=== PATIENT | female | born 1980 | race Caucasian/White ===

== ENCOUNTER 2023-05-01 10:21 | Outpatient (CLI) | payer OTHER, SELFPAY ==
[2023-05-01 12:42] LABS: Basophils Absolute Auto 0.1 K/mm3 (0.0-0.1); Basophils Percent Auto 1.1 % (0.2-1.2); Eosinophils Absolute Auto 0.2 K/mm3 (0-0.3); Eosinophils Percent Auto 2.8 % (0-4.4); Hematocrit 46.4 % (37.0-47.0); Immature Granulocyte Absolute 0.02 K/mm3 (0.00-0.031); Immature Granulocyte Percent A 0.4 % (0-0.5); Lymphocytes Absolute Auto 1.52 K/mm3 (0.9-3.2); Lymphocytes Percent Auto 28.8 % (18.3-44.2); Mean Corpuscular HGB Conc 32.3 g/dl (32-36); Mean Corpuscular Hemoglobin 30.4 pg (26-34); Mean Corpuscular Volume 93.9 fl (80-100); Mean Platelet Volume 11.3 fl (7.4-10.4); Monocytes Absolute Auto 0.4 K/mm3 (0.1-0.6); Monocytes Percent Auto 6.6 % (2.6-8.5); Neutrophils Absolute Auto 3.2 K/mm3 (1.3-6.7); Neutrophils Percent Auto 60.3 % (45.5-73.1); Platelet Count Result 184 k/mm3 (150-375); Red Blood Count 4.94 M/mm3 (4.2-5.4); Red Cell Distribution Width 13.5 % (11.5-14.5); White Blood Count 5.3 K/mm3 (4.5-10.0)
[2023-05-01 12:55] LABS: Alanine Aminotransferase 26 U/L (6-35); Albumin Level 4.1 g/dL (3.5-5.1); Alkaline Phosphatase 66 U/L (38-126); Anion Gap 0 mmol/L (8-16); Aspartate Amino Transferase 31 U/L (14-36); Bilirubin,Total 0.5 mg/dL (0.2-1.3); Blood Urea Nitrogen 21 mg/dL (7-17); Calcium 9.1 mg/dL (8.4-10.2); Carbon Dioxide 29 mmol/L (22-30); Chloride 109 mmol/L (98-107); Cholesterol 204 mg/dL (0-200); Estimated Glomerular Filt Rate > 60; Glucose 92 mg/dL (65-110); HDL Direct 55 mg/dL; Potassium 4.1 mmol/L (3.4-5.0); Sodium 138 mmol/L (137-145); Triglycerides 83 mg/dL (<150)
[2023-05-01 13:06] LABS: LDL Cholesterol Direct 106 mg/dL
[2023-05-01 13:25] LABS: Vitamin D 25 Hydroxy 59.4 ng/mL
[2023-05-01 14:54] LABS: Erythrocyte Sedimentation Rate 7 mm/hr (0-20)
[2023-05-04 16:20] LABS: ANA Cascade Screen Negative (Negative)
== END 2023-05-01 10:22 | disposition home or self-care (01) ==
LOC: ANHGOSHLAB 10:22
PROVIDERS: PCP Clinical Nurse Specialist; Visit Provider Clinical Nurse Specialist
DX: Z13.228 Encounter for screening for other metabolic disorders (principal); Z13.220 Encounter for screening for lipoid disorders; E55.9 Vitamin D deficiency, unspecified; Z13.0 Encounter for screening for diseases of the blood and blood-forming organs and certain disorders involving the immune mechanism; G47.00 Insomnia, unspecified
CPT/HCPCS: 36415; 80053; 80061; 82306; 84443; 85025; 85652; 86038

== ENCOUNTER 2023-07-03 11:37 | Outpatient (CLI) | payer OTHER, SELFPAY ==
[2023-07-03 19:22] LABS: Rheumatoid Factor < 12.0 IU/ML (<12)
[2023-07-03 19:41] LABS: Erythrocyte Sedimentation Rate 5 mm/hr (0-20)
== END 2023-07-03 11:38 | disposition home or self-care (01) ==
LOC: ANHGOSHLAB 11:39
PROVIDERS: PCP Clinical Nurse Specialist; Visit Provider Clinical Nurse Specialist
DX: M25.40 Effusion, unspecified joint (principal)
CPT/HCPCS: 36415; 85652; 86430

== ENCOUNTER 2023-07-24 09:20 | Emergency (ER) | payer OTHER, SELFPAY ==
[2023-07-24 09:35] VITALS: BP 115/75; PULSE 67; RESP 16; TEMP 36.3; O2SAT 100
[2023-07-24 09:58] VITALS: BP 115/75; PULSE 67; RESP 16; TEMP 36.3; O2SAT 100
--- NOTE | 2023-07-24 10:31 | ED.EAR ---
HPI - Ear Problem General Chief complaint: Ear Stated complaint: Ear infection Time Seen by Provider: 07/24/23 10:31 Source: patient, RN notes reviewed and old records reviewed Mode of arrival: ambulatory Limitations: no limitations History of Present Illness HPI Narrative: 43 year old female present to [facility] with complaints of ear pain to her right ear for 2 day duration. Patient also reports that she has had dry irritating cough for 2 weeks, denies any history of asthma. Patient reports history of ear infections with numerous tubes to her ears.Patient denies any fevers, chills, or sweats or any body aches. MD Complaint: ear pain Location: right ear Duration: constant Severity: mild Discharge from ear: Reports no Treatment prior to arrival: oral analgesic (Ibuprofen) Related Data Allergies Allergy/AdvReac Type Severity Reaction Status Date / Time No Known Allergies Allergy Unverified 07/24/23 09:49 Review of Systems Review of Systems: CONSTITUTIONAL: Denies malaise, chills, sweats, or fever. EYES: Denies visual changes, redness, or discharge. ENT: Reports no rhinorrhea, congestion, sinus pain,positive right otalgia and no sore throat. CARDIOVASCULAR: Denies chest pain, palpitations, or edema. RESPIRATORY: Reports cough dry irritating.? Denies dyspnea. GASTROINTESTINAL: Denies abdominal pain, nausea, vomiting, diarrhea SKIN: Denies rash or itching. MUSCULOSKELETAL: Denies myalgia. NEUROLOGIC: Denies headache. All systems reviewed & are unremarkable except as noted in HPI and below PMFSH Past Medical History Medical History (Updated 07/26/23 @ 12:11 by Shelly Alcaraz NP) Ear infection Surgical History Surgical History (Updated 07/26/23 @ 12:07 by Shelly Alcaraz NP) History of placement of ear tubes x5 last at 16 year old Social History Social History (Updated 04/14/23 @ 09:01 by Anna Blackwell MA) Smoking status: Never smoker Alcohol intake: current Substance use: never Lack of Transportation: No Lack of Food: Never True Current Housing: I Have Housing Concerned About Future Housing: No Difficulty Paying Gas/Electric Bills: No Currently Unemployed: No Education: Bachelor's Degree Difficulty w/ Childcare or Family Care: No Living arrangements: with family Comments At time of signature, agree with nursing past medical, surgical, social and family history. There is no relevant family history pertinent to the presenting complaint Exam Narrative: GENERAL: Well-appearing, well-nourished, and in no acute distress. HEAD: Normocephalic EYES: PERRLA, conjunctivae clear ENT: Nares clear, turbinates edematous and erythematous, clear discharge. Mucous membranes moist.right TM red and bulging,Left TM pearly collins with dull light reflex bilaterally; no tragal tenderness. Oropharynx erythematous without lesions. Tonsils not enlarged and without exudate, no drooling, no hoarseness, no trismus, uvula midline. NECK: Supple. No lymphadenopathy CHEST: Clear to auscultation, breath sounds equal. No wheezing, rhonchi, rales, or stridor. No respiratory distress, speaks in full sentences.dry cough, SAO2 100% on room air HEART: Regular rate and rhythm. No murmur heard. SKIN: Warm, dry, no rash. NEURO: Alert and oriented x3. PSYCH: Normal mood and affect Course Course Emergency Course: Patient is aware of diagnosis, understands and agrees to treatment plan.? Anticipatory guidance given.? Patient agrees to follow-up as directed and is aware of reasons to seek care at the emergency department. Portions of this record may have been created with voice recognition software Level of Care: Express Care Visit Vital Signs Vital signs: Vital Signs Temperature 36.3 C L 07/24/23 09:35 Pulse Rate 67 07/24/23 09:35 Respiratory Rate 16 07/24/23 09:35 Blood Pressure 115/75 07/24/23 09:35 Pulse Oximetry 100 07/24/23 09:35 Oxygen Delivery
== END 2023-07-24 10:45 | disposition home or self-care (01) ==
PROVIDERS: Emergency Provider Registered Nurse; PCP Clinical Nurse Specialist
DX: R05.9 Cough, unspecified (principal); H66.91 Otitis media, unspecified, right ear
CPT/HCPCS: 99213; G0463

== ENCOUNTER → 2023-08-04 16:04 | Outpatient (CLI) | payer OTHER, SELFPAY ==
--- NOTE | ~2023-08-04 | MR_ITS ---
EXAMINATION: MR shoulder RT wo con DATE: 08/04/2023 16:32 INDICATION: Chronic right shoulder pain. TECHNIQUE: Magnetic resonance imaging (MRI) of the right shoulder was performed without intravenous c ontrast. Sequences included axial PD-weighted FS FSE, coronal oblique PD-weighted FS FSE and T2-weigh talha FS FSE, and sagittal oblique T2-weighted FS FSE and T1-weighted FSE. COMPARISON: None. FINDINGS: Coracoacromial arch: The acromion undersurface is curved in morphology (type II). There is mild acromial clavicular joint osteoarthritis. There is mild subacromial/subdeltoid bursitis. Rotator cuff: There is mild supraspinatus and infraspinatus tendinopathy. Teres minor tendon is normal. Subscapular is tendon is normal. No tear. There is no asymmetric fatty atrophy of the rotator cuff muscle bellies . Biceps tendon and glenoid labrum: The biceps tendon is in the bicipital groove. Intra-articular biceps tendon is normal. The glenoid la jenna is normal. Fluid: There is no glenohumeral joint effusion. Bones/cartilage: Glenoid cartilage is normal. Humeral head cartilage is normal. IMPRESSION: 1. Mild rotator cuff tendinopathy. No tear. 2. Mild acromioclavicular joint osteoarthritis. 3. Mild subacromial/subdeltoid bursitis. Reviewed, dictated and finalized at location A.
== END ==
PROVIDERS: PCP Clinical Nurse Specialist; Visit Provider Orthopaedic Surgery
DX: M75.51 Bursitis of right shoulder (principal); M19.011 Primary osteoarthritis, right shoulder
CPT/HCPCS: 73221

== ENCOUNTER 2024-05-30 14:58 | Outpatient (CLI) | payer OTHER, SELFPAY ==
--- NOTE | ~2024-05-30 | MM_ITS ---
EXAMINATION: MM scrn juan ramon implant BI w isrrael HISTORY: Screening mammogram TECHNIQUE: Craniocaudal and mediolateral oblique 3-D tomosynthesis images with implant displacement a nd synthetic 2-D images were generated. Craniocaudal and mediolateral oblique views of the breasts wi thout implant displacement were obtained using full field digital mammography. CAD analysis was submi tted and interpreted. COMPARISON: No prior mammogram is available for comparison at this institution. BREAST PARENCHYMAL COMPOSITION: Not dense: There are scattered areas of fibroglandular density. FINDINGS: There is no evidence of suspicious mass, calcification, or architectural distortion to sugg est malignancy in either breast. There has been no suspicious interval change. IMPRESSION: 1. No mammographic evidence of malignancy. 2. Recommend routine screening mammography in one year. BI-RADS Category 1: Negative Reviewed, dictated and finalized at location B.
== END 2024-05-30 14:59 ==
LOC: MICIMG 14:58
PROVIDERS: PCP Obstetrics & Gynecology Gynecology; Visit Provider Clinical Nurse Specialist
DX: Z12.31 Encounter for screening mammogram for malignant neoplasm of breast (principal)
CPT/HCPCS: 77063; 77067

== ENCOUNTER 2025-06-03 11:38 | Outpatient (CLI) | payer OTHER, SELFPAY ==
--- OUTSIDE RECORDS SUMMARY | 2025-06-03 12:23 | XMS_ITS | Clinical Summary ---
Author Organization [facility] Address [address] [place] [address] Care Team Providers Care Pool Hall Inspector Name Role Phone Sherie Ferguson NP Primary Care Provider [phone] Ricky Hernandez MD Unavailable [phone] Allergies Active Allergy Reactions Criticality Noted Date Comments Adhesive Tape-Silicones Itching,Rash Medium 07/08/2019 Chlorhexidine Rash Medium 11/02/2023 Skin-rash Medications cetirizine (ZyrTEC) 10 mg chewable tablet Take 1 tablet (10 mg total) by mouth daily as needed for allergies Active doxylamine succinate (UNISOM, DOXYLAMINE, ORAL) Take 12.5 mg by mouth 2 Active valACYclovir (VALTREX) 500 mg tablet Take 1 tablet (500 mg total) by mouth nightly 2 Active LYSINE ORAL Take 1 capsule by mouth nightly Active ibuprofen (ADVIL,MOTRIN) 600 mg tablet Take 1 tablet (600 mg total) by mouth 4 (four) times a day as needed 3 Active multivitamin powder in packet Take 1 tablet by mouth nightly Active Lactobacillus acidophilus (PROBIOTIC ORAL) Take 1 capsule by mouth nightly Active traMADoL (ULTRAM) 50 mg tablet Take 1 tablet (50 mg total) by mouth every 6 (six) hours as needed for pain 28 tablet 3 Active meloxicam (MOBIC) 15 mg tablet TAKE 1 TABLET(15 MG) BY MOUTH DAILY 30 tablet 3 4 Active gabapentin (NEURONTIN) 300 mg capsuleIndicatio ns:Chronic right shoulder pain TAKE 1 CAPSULE BY MOUTH EVERY NIGHT AT BEDTIME FOR 4 NIGHTS THEN 1 CAPSULE TWICE DAILY 60 capsule 5 Active cephalexin (KEFTAB) 500 mg tablet 4 Active Active Problems Problem Noted Date Diagnosed Date S/P arthroscopy of right shoulder 11/30/2023 Shoulder pain 11/30/2023 H/O: hysterectomy 10/02/2023 Rotator cuff impingement syndrome of right shoul juanjose 09/08/2023 Bursitis of right shoulder 09/08/2023 Ankle pain 02/25/2016 Surgical History Surgery Date Site/Laterality Comments SECTION 2000 2002 HYSTERECTOMY COSMETIC SURGERY Social History Tobacco Use Types Packs/Day Years Used Date Smoking Tobacco: Never Tobacco Cessation:Counseling Given: Not Answered AUDIT-C Answer Date Recorded Q1: How often do you have a drink containing alc ohol? Monthly or less 10/17/2023 Average Number of Drinks Not on file 023 Q3: How often do you have si x or more drinks on one occasion? Never 10/17/2023 Personal Safety Answer Date Recorded Have you ever been in or are you currently in a harmful physical or emotional relationship or is someone making you feel afraid or unsafe? Denies 10/17/2023 Comments No Sex and Gender Information Value Date Recorded Sex Assigned at Not on file Legal Sex Female 10:40 AM PREPLEATER Gender Identity Not on file Sexual Orientation Not on file Obstetrics History Last Filed Vital Signs Vital Sign Reading Time Taken Comments Blood Pressure 115/66 10/17/2023 10:45 AM PREPLEATER Pulse 70 10/17/2023 10:45 AM PREPLEATER Temperature 36.4 C (97.5 F) 10/17/2023 10:15 AM PREPLEATER Respiratory Rate 16 10/17/2023 10:45 AM PREPLEATER Oxygen Saturation 98% 10/17/2023 10:45 AM PREPLEATER Inhaled Oxygen Concentration - - Weight 77.1 kg (170 lb) 11/30/2023 1:22 PM PREPLEATER Height 160 cm (5' 3) 11/30/2023 1:22 PM PREPLEATER Body Mass Index 30.11 11/30/2023 1:22 PM PREPLEATER Plan of Treatment Health Maintenance Due Date Last Done Comments Breast Cancer Screening-Mammogram 1978 Colon Cancer Screening-Colonoscopy 1978 Depression Screening 1978 Hepatitis C Screening 1978 Regular Well Visit/Exam 18-64 1996 Influenza Vaccine (#1) 2025 3, 08/25/2022, 08/29/2016, Additional history exists DTaP/Tdap/Td Vaccine (3 - Td or Tdap) 01/10/2026 01/11/2016, 03/09/2010 Hepatitis B Screening Completed 08/31/2010 , 08/31/2010, 05/11/2010, Additional history exists Pneumococcal vaccine <65 Aged Out No longer eligible based on patient's age to complete this topic Medical Devices Implanted Type Area Quality Assurance Auditor Device Identifier Shelf Expiration Date Model / Serial / Lot Breast Breast Bilateral: Breast Insurance [facility] Care Teams Pool Hall Inspector Relationship Specialty Start Date End Date Sherie Ferguson NP [facility] [address] [place] [address] PCP - General Cardiovascular Disease 10/17/23 Ricky Hernandez MD [address] [place] [address] Consulting Physician Orthopedic Surgery 10/17/23
--- OUTSIDE RECORDS SUMMARY | 2025-06-03 12:23 | XMS_ITS | Continuity of Care Document ---
Author Name [facility] Organization [facility] Care Team Providers Care Commercial Fisherman Name Role Phone [facility] Unavailable Unavailable Problems Combined list of problems from Department of Defense and Veterans Affairs facilities. It does not include entries that were removed or entered in error. Problem Status Onset Date Problem Type Date of Resolution Comments Source Abnormal electrocardiogram [ECG] [EKG] Active Condition [facility] Pain in left wrist Active Condition [facility] Pain in right shoulder Active Condition [facility] H/O: hysterectomy Active Condition [address] [place] [address] Pain in right shoulder Active Condition [address] [place] [address] Medications Combined list of outpatient medications from Department of [facility] and Veterans [facility] facilities.Medications provided include 1) outpatient medications from the last 15 months, and 2) patient-reported medications. Medication Details Route Status Patient Instructions Prescription Expires Prescription Number Last Dispense Date Ordering Provider Order Date Order Qty Source cephalexin 500 mg oral capsule 0 total refill(s ) Discont inued 01/13/20222021 No Facilit y Access NexIUM Oral, Daily, 0 total refill(s ), Maintena nce Oral (given by mouth) Ordered [address] [place] [address] polymyxin B-trimethop rim 10,000 units-1 mg/mL ophthalmic solution polymyxi n B-trimet hoprim 10,000 units-1 mg/mL ophthalm ic solution Start Date: 01/19/20 Stop Date: 01/13/22 Status: Disconti hernando Repeat number: 1 Discont inued 01/13/20222021 No Facilit y Access sulfamethox azole-trime thoprim 800 mg-160 mg oral tablet 0 total refill(s ) Discont inued 01/13/20222021 No Facilit y Access Unisom mg, Oral, Daily, 0 total refill(s ), Maintena nce Oral (given by mouth) Ordered [address] [place] [address] valACYclovi r 500 mg oral tablet 1 tab(s), Oral, Daily, # 90 tab(s), 1 total refill(s ), Hard Stop, 03/23/22 10:28:45 PM CDT, Pharmacy : [facility] #[id number] Oral (given by mouth) Complet ed 03/24/2022[address] [place] [address] valACYclovi r 500 mg oral tablet 1 tab(s), Oral, Daily, # 90 tab(s), 3 total refill(s ), Maintena nce, Pharmacy : [facility] #[id number] Oral (given by mouth) Ordered [address] [place] [address] valACYclovi r 500 mg oral tablet 1 tab(s), Oral, Daily, # 90 tab(s), 1 total refill(s ), Hard Stop, 09/10/21 1:25:06 PM LOOP TACKER, Pharmacy : [facility][id number] Oral (given by mouth) Complet ed 09/10/20212020 90.[address] [place] [address] valACYclovi r 500 mg oral tablet 2 total refill(s ) Discont inued 01/13/20222021 No Facilit y Access ZyrTEC Daily, 0 total refill(s ), Maintena nce Ordered [address] [place] [address] Allergies, Adverse Reactions, Alerts Combined list of allergies from Department of Defense and Veterans Affairs facilities. It does not include entries that were removed or entered in error. Substance Category Reaction Severity Reaction type Status Date Reported Comments Source No Known Allergies Drug allergy (disorder) active 07/10/2018 [place] Immunizations Combined list of available immunizations from the Department of Defense and Veterans Affairs facilities. Immunization Series Date Given Administered By Site Reaction Lot Number CVX Code Drug Zoology Technical Officer Status Comments Source influenza, injectable, quadrivalent, preservative free 2020 DOLORES, () Not Given influenza , injectabl e, quadrival ent, preservat kajal free [facility] Vital Signs Combined list of inpatient and outpatient Vital Signs from Department of Defense and Veterans Affairs, ranging from 12 months to all on record, depending upon the facility. Vital Sign Value Date Comments Source Mean Arterial Pressure, Cuff (Calc) 95 mm[Hg] 01/13/2022 21:25:[address] [place] [address] Peripheral Pulse Rate 81 bpm 01/13/2022 21:25:[address] [place] [address] Temperature Temporal Artery 37 Amie 01/13/2022 21:25:[address] [place] [address] Respiratory Rate 18 br/min 01/13/2022 21:25:[address] [place] [address] Systolic Blood Pressure 123 mm[Hg] 01/14/20 21:25:[address] [place] [address] Diastolic Blood Pressure 81 mm[Hg] 022 21:25:[address] [place] [address] Mean Arterial Pressure, Cuff (Calc) 86 mm[Hg] 01/18/2022 19:42:[address] [place] [address] Temporal Artery 36.8 Amie 01/18/2022 19:42:[address] [place] [address] Systolic Blood Pressure 113 mm[Hg] 01/19/20 19:42:[address] [place] [address] Diastolic Blood Pressure 72 mm[Hg] 022 19:42:[address] [place] [address] Respiratory Rate 18 br/min 01/18/2022 19:42:[address] [place] [address] Peripheral Pulse Rate 86 bpm 01/18/2022 19:42:[address] [place] [address] Systolic Blood Pressure 112 mm[Hg] 05/06/20 20:23:[address] [place] [address] Diastolic Blood Pressure 77 mm[Hg] 022 20:23:[address] [place] [address] Temporal Artery 36.8 Amie 05/06/2022 20:23:[address] [place] [address] Mean Arterial Pressure, Cuff (Calc) 89 mm[Hg] 05/06/2022 20:23:[address] [place] [address] Blood Pressure Manual Automatic 05/06/2022 20:23:[address] [place] [address] BP Site Right arm 05/06/2022 20:23:[address] [place] [address] Respiratory Rate 16 br/min 05/06/2022 20:23:[address] [place] [address] Peripheral Pulse Rate 80 bpm 05/06/2022 20:23:[address] [place] [address] Encounters Combined list of: 1) Encounters from Department of Veterans Affairs facilities going backup to the last 18 months, not all VA inpatient encounters are included; 2) Encounters from the Department of [facility] facilities going backup to 280 months. Location Location Details Encounter Type Encounter Number Reason For Visit Attending Provider ADM Date DC Date Status Disposition Source LAURA Koehler([facility]) OUTPATIENT [id number] Well visit yearly JESÚS RAMIREZ 04/19 Released w/o Limitations [place] Choi [place]([facility]) LAURA Koehler([facility]) TELE CONSULT [id number] Notes Entered by: DE CROWLEY 24 Jul 2017 0906 ------- ------- ------- ------- -- ritesh/ refill on valacyc paulineir/ # checked msg MALIHA Stallworth 07/24 Released to Self Care Carlos Choi [place]([facility]) LAURA Koehler([facility] A) OUTPATIENT [id number] sinus infecti on KAYLEE ALEGRIA 08/04 Released w/o Limitations Carlos Choi [place]([facility]) [place]oi [place]([facility]) OUTPATIENT [id number] severe abdomin al/stom ache pain KAYLEE ALEGRIA 11/23 Released w/o Limitations Carlos Choi [place]([facility]) [place] Choi [place]([facility]) TELE CONSULT [id number] Notes Entered by: Luis Miguel WINTER 24 Nov 2017 0918 ------- ------- ------- ------- -- NETWORK RESULT- ORDER CT SCAN- 018 KAYLEE ALEGRIA 11/24 [place]oi [place]([facility]) [facility]) TELE CONSULT [id number] Notes Entered by: PK CARRASCO 27 Nov 2017 0901 ------- ------- ------- ------- -- Request ing MRI referra [id number] MALIHA BELLA 11/27 Referred for Appointment Carlos Choi [place]([facility]) [place] [facility]) TELE CONSULT [id number] Notes Entered by: ANGELIKA RODRIGUEZ 27 Nov 2017 1318 ------- ------- ------- ------- -- NETWORK RESULT- CT ABDOMEN /PELVIS W- 8-m MALIHA BELLA 11/27 Referred for Appointment Carlos Choi [place]([facility]) [facility]) TELE CONSULT [id number] Notes Entered by: DE CROWLEY 20 Dec 2017 0958 ------- ------- ------- ------- -- saw ritesh/ MRI results , done on monday, health images JONATHAN BETTY C 12/20 Other Not Elsewhere Classified Carlos Choi [place]([facility]) [place] [facility] Team A) TELE CONSULT [id number] Notes Entered by: ISMAEL CHOPRA 10 Jan 2018 1448 ------- ------- ------- ------- -- Network Results -MRI Abdomen - KAYLEE ALEGRIA 01/10 [place]oi [place]([facility] Team A) [place] [facility] Team A) TELE CONSULT [id number] Notes Entered by: MACRELINO BLAND 29 Jan 2018 1450 ------- ------- ------- ------- -- Network Result- Urology 018 KAYLEE ALEGRIA 01/29 [place]([facility]) [place]([facility]_Te[facility] m A) TELE CONSULT [id number] Notes Entered by: SAMEER LTOT 28 Mar 2018 1042 ------- ------- ------- ------- -- / prescri ption refill ROSAMARIA MONTGOMERY 03/28 Medication Refill Forwarded Gonzalez DONOVAN [place]([facility] [facility] _Team A) Gonzalez DONOVAN [place] Ch[place]([facility] y_[facility]_Tea m A) OUTPATIENT [id number] right wrist issues looking for referal orortho pedics KAYLEE ALEGRIA 07/09 Released w/o Limitations Gonzalez DONOVAN [place]oi [place]([facility] _Team [facility]) Gonzalez DONOVAN [place] [facility]([facility]) TELE CONSULT [id number] Notes Entered by: BRENDON BUSTOS 16 Jul 2018 1044 ------- ------- ------- ------- -- IUD Inserti on BETTY CASTILLO Emmanuel 07/16 Other Not Elsewhere Classified [facility]) [facility]) TELE CONSULT [id number] Notes Entered by: BRAD ALARCON 31 Jul 2018 0903 ------- ------- ------- ------- -- BCBA/ PT would like IUD implant on Jul AYANNA GARCIA 07/31 Other Not Elsewhere Classified [place]( [facility]) [place] con[place]_[facility]_Te[facility] m A) TELE CONSULT [id number] Notes Entered by: SAMEER LOTT 13 Aug 2018 0906 ------- ------- ------- ------- -- Ritesh/ prescri ption IKE Bledsoe 08/13 [place]) [place]( [facility]) OUTPATIENT [id number] IUD inserti on FRANCISCA TEE 08/15 Released w/o Limitations [place]( [facility]) [place]( [facility] OUTPATIENT [id number] 2 well womans exam and 6 wk f/u for IUD placeme nt FRANCISCA TEE 09/28 Released w/o Limitations [place]( [facility]) [place]( [facility] TELE CONSULT [id number] Notes Entered by: Luis Miguel TEE 10 Oct 2018 1320 ------- ------- ------- ------- -- FRANCISCA Choi 10/10 Carlos [place]( [facility]) [place]( [facility]) TELE CONSULT [id number] Notes Entered by: Luis Miguel TEE 26 Oct 2018 1341 ------- ------- ------- ------- -- Tapan mammogr am FRANCISCA TEE 10/26 Carlos [place]( [facility]) [place] [facility] [facility] Team A) OUTPATIENT [id number] pt wants to get blood drawn DORIE QUINTEROS 11/21 Released with Work/Duty Limitations [place]) [place] Team A) TELE CONSULT [id number] Notes Entered by: INDIO QUINTEROS 17 Dec 2018 1612 ------- ------- ------- ------- -- Cholest YAHAIRA Juarez 12/17 Gonzalez [place]) [place]) OUTPATIENT [id number] 3 discuss IUD issues FRANCISCA TEE 05/02 Released w/o Limitations Gonzalez DONOVAN [place]( [facility]) [place]) TELE CONSULT [id number] Notes Entered by: Luis Miguel TEE 03 May 2019 0742 ------- ------- ------- ------- -- FRANCISCA Choi 05/03 Gonzalez DON[place]AN [place]( [facility]) [place]) OUTPATIENT [id number] 7 YOJANA HUNG DD 05/16 Released w/o Limitations Gonzalez DONOVAN [place]) [place] y [facility] Team A) TELE CONSULT [id number] Notes Entered by: DYLAN ANN 10 Jun 2019 1255 ------- ------- ------- ------- -- Juan/FRANCISCA Bolivar 06/10 Gonzalez DONOVAN [place]) Gonzalez DON[place]( [facility]) TELE CONSULT [id number] Notes Entered by: DANE RAM 19 Jun 2019 0834 ------- ------- ------- ------- -- FRANCISCA Shin 06/19 [place]([facility]) [place]([facility] Team A) TELE CONSULT [id number] Notes Entered by: DANE RAM 19 Jun 2019 1303 ------- ------- ------- ------- -- Tone kc/NGOZI Fang 06/19 Referred for Appointment [place] [facility] Team A) [place] [facility] Team A) TELE CONSULT [id number] Notes Entered by: DONNIE SORIANO 20 Jun 2019 0910 ------- ------- ------- ------- -- Network results - 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 APPRENTICE WOOD- 9 DORIE QUINTEROS 06/20 [place] [facility] [facility] Team [facility]) [place] A) OUTPATIENT [id number] virtual [phone] to discuss referra l for hernia surgery - ALDAIR LIRIANO JAMES T 06/20 Released w/o Limitations [place] [facility] [facility] Team [facility]) [place] Team [facility]) TELE CONSULT [id number] Notes Entered by: MAYITO CRESPO SA 29 Jul 2019 1543 ------- ------- ------- ------- -- Network Results - DERMATO LOGY - 8 YOJANA TABOR 07/29 [place] [facility] Team [facility]) [place] Team A) TELE CONSULT [id number] Notes Entered by: DONNIE SORIANO 26 Sep 2019 1447 ------- ------- ------- ------- -- Network results - Prescri ption- 9 YOJANA TABOR 09/26 [place] [facility] [facility] Team [facility]) [place] Team A) TELE CONSULT [id number] Notes Entered by: TRACEE GONZALEZ 30 Sep 2019 1355 ------- ------- ------- ------- -- Tone kc/RX KENNETH GODOY 09/30 Other Not Elsewhere Classified [place] [facility] [facility] Team [facility]) [place] Team [facility]) TELE CONSULT [id number] Notes Entered by: Gisela CHRISTIANSON NNE 06 Nov 2019 1549 ------- ------- ------- ------- -- Network results -Physic al therapy -2018 YOJANA TABOR 11/06 Gonzalez DONOVAN [place]([facility]) [place]([facility] Team A) TELE CONSULT [id number] Notes Entered by: MAURISIO CHAVARRIA 23 Dec 2019 1037 ------- ------- ------- ------- -- Network Results - General Surgery - 019 YOJANA TABOR 12/22 Carlos [place] Team [facility]) [place] Team A) TELE CONSULT [id number] Notes Entered by: ANAYELI JOHNS 27 Dec 2019 1010 ------- ------- ------- ------- -- Network Result - Dischar ge Summary 019 YOJANA TABOR 12/26 Carlos [place]) [place] Team A) OUTPATIENT [id number] eye pain GABRIEL ALVES V 01/16 Released w/o Limitations [place]) [place] Team A) TELE CONSULT [id number] Notes Entered by: JOEL ARROYO 20 Jan 2020 1108 ------- ------- ------- ------- -- TONE [place]/REFE STEVIE HOPPER 01/19 Other Not Elsewhere Classified [place]) [place] Team A) TELE CONSULT [id number] Notes Entered by: Gisela MARTI 23 Jan 2020 1226 ------- ------- ------- ------- -- TONE [place] PT ER F/U STEVIE VEE 01/22 Other Not Elsewhere Classified [place]) [place] Team [facility]) TELE CONSULT [id number] Notes Entered by: MARAH CHAVARRIA 10 Jun 2020 1042 ------- ------- ------- ------- -- Casselnatasha an / MED / Medicat ion Renewal GABRIEL ALVES V 06/10 [place]) [place]) OUTPATIENT [id number] [id number] med concern GABRIEL ALVES V 06/16 Released w/o Limitations [place]([facility]) [place] Team [facility]) TELE CONSULT [id number] Notes Entered by: Gisela CHRISTIANSON 16 Jun 2020 1405 ------- ------- ------- ------- -- Network Results -Rx Refill- 020 KYMBERLYKEONYOJANA 06/16 LAURA Koehler([facility]) LAURA Koehler([facility]) TELE CONSULT [id number] Notes Entered by: Loretta ROBERTSON 31 Aug 2020 1045 ------- ------- ------- ------- -- NA / APPT / FTR / F2F for PAP/Wel l Woman and Painful bump on Labia HARNESS, ROSETTE S 08/31 Referred for Appointment LAURA Koehler([facility]) LAURA Koehler([facility]) OUTPATIENT [id number] PAP/WWE Check Lump FRANCISCA TEE 09/07 Released w/o Limitations Gonzalez [facility] LAURA Farr([facility]) [facility] LAURA Farr([facility]) TELE CONSULT [id number] Notes Entered by: Luis Miguel TEE 11 Nov 2020 1342 ------- ------- ------- ------- -- Tapan/ juan josé zhao for mammogr am FRANCISCA Calderon 11/11 LAURA Koehler([facility]) [facility] OUTPATIENT [id number] 320/ eye concern s GABRIEL ALVES V 11/19 Released w/o Limitations Carlos Choi [place]([facility]) SYBIL Dillard([address]) TELE CONSULT [id number] Notes Entered by: Brianna AGUERO 06 Jun 2022 1339 ------- ------- ------- ------- -- SUMMER G-JASBIRE R REGABRIEL QIUROS 06/06 SYBIL Dillard([address]) [place] DONOVAN [employer], [place]([address]) TELE CONSULT [id number] Notes Entered by: YOJANA MARIE 07 Jun 2022 1111 ------- ------- ------- ------- -- Need referYOJANA Navarrete 06/07 [place] DONOVAN [employer], [place]([address]) [facility] [place], SY[place]([address]) OUTPATIENT [id number] [phone]: [facility] Ref: ortho R shoulde r. Change [facility] BEL ALEXIS 06/10 Released w/o Limitations [place] DONOVAN [employer], [place]([address]) [facility] [place], [place]([address]) TELE CONSULT [id number] Notes Entered by: AUSTIN MONCADA 25 Jul 2022 0820 ------- ------- ------- ------- -- NETWORK RESULTS -ORTHOP EDICS-D OS: 07/22/20 22, LOOK IN ARTIFAC TS and IMAGES. BEL ALEXIS 07/25 [place] DON[place]AN [employer], [place]([address]) [facility] [place], [place](Family Medicine) OUTPATIENT [id number] HC REFERRA L PER MS BEL MUELLER 07/25 Released w/o Limitations [place], [place](Fami ly Medicin e) [facility] [place], [place](Family Medicine) OUTPATIENT [id number] HC REFERRA L CARDIOL IGNACIO HINSON 10/12 Released w/o Limitations [place](F[place] Medic[place]) [facility] [place], [place](Family Medicine) TELE CONSULT [id number] Notes Entered by: Brianna AGUERO 20 Oct 2022 0857 ------- ------- ------- ------- -- NEEDING MOST RECENT EKG RESULTS GABRIEL AGUERO 10/20 [facility] [place], [place](Fami ly Medicin e) Procedures Combined list of: 1) Procedures from Department of Veterans Affairs facilities going back up to thelast 18 months, not all VA non-surgical procedures are included; 2) All procedures from the Department of Defense facilities. Procedure Procedure Type Code Date Perfomer Comments Sourc e Internet Med Svc Qual Nonphys Healthcare Prof Estab Patient Internet Med Svc Qual Nonphys Healthcare Prof Estab Patient [id number] DORIE QUINTEROS DoD Orthopedic Strapping Wrist Orthopedic Strapping Wrist [id number] 8 KAYELE ALEGRIA [facility] Psychiatric Therapy Environmental Intervention Psychiatric Therapy Environmental Intervention [id number] 7 AKASH SEGOVIA [facility] Cervical Pap Smear Cervical Pap Smear [id number] 7 JESÚS RAMIREZ DoD Brief communication technology-based service, e.g. virtual check-in, by a physician or other qualified health care profe james who can report evaluation and management services, provided to an established patient, not originating from a related E/M service provided within the previous 7 days nor leading to an E/M service or procedure within the next 24 hours or soonest available appointment; 5-10 minutes of medical discu ion GABRIEL GRADY V DoD Waiver services; not otherwise specified (NOS) GABRIEL GRADY V DoD WAIVER SERVICES; NOT OTHERWISE SPECIFIED (NOS) 2 DoD WAIVER SERVICES; NOT OTHERWISE SPECIFIED (NOS) 2 DoD WAIVER SERVICES; NOT OTHERWISE SPECIFIED (NOS) 2 DoD WAIVER SERVICES; NOT OTHERWISE SPECIFIED (NOS) 1 DoD WAIVER SERVICES; NOT OTHERWISE SPECIFIED (NOS) 0 DoD BRIEF COMM TECH-BASE SERV,E.G. VIRT CHK-IN,BY PHYS/OTH QUAL HCP,RPT E&M SERV,PROV TO EST PT,NOT ORIG FRM REL E/M SERV PROV W/IN PREV 7DAY NOR LEAD TO E/M SRV/PX W/IN NEXT 24HR/SOON ANGELINE; 5-10 MIN DISC 0 [facility] ONLINE ASSESS &MANAG SERV PROVIDE,A QUAL NONPHYS HCP TO AN ESTABLISHED PAT/GUARDIAN,NOT ORIGINAT FRM RELAT ASSESS &MANAG SERV PROVIDE W/IN THE PREV 7 DAYS,USE THE INTERNET/SIMILAR [place] COMM NETWORK 9 DoD INSERTION OF INTRAUTERINE DEVICE (IUD) 8 [facility] STRAPPING; ELBOW OR WRIST 8 [facility] ENVIRONMENTAL INTERVENTION FOR MEDICAL MGMT PURPOSES ON A PSYCHIATRIC PATIENT'S BEHALF WITH AGENCIES, EMPLOYERS, OR INSTITUTIONS 7 [facility] CYTOPATHOLOGY, SMEARS, CERVICAL OR VAGINAL, UP TO THREE SMEARS; SCREENING BY MANAGING PARTNER UNDER PHYSICIAN SUPERVISION 7 [facility] Hysterectomy [address] [place] [address] ear tubes [address] [place] [address] c section x [address] [place] [address] Social History Combined list of available smoking, tobacco, and other social history from Department of Defense and Veterans Affairs facilities. Social History Type Response Date Comment Sour e Sex Representation Female (finding) 12/15/2020 Unknown Organization This section is an empty social history section. [facility] Tobacco Former-cigarette user Cigarette use:. Never-other tobacco user (not cigarettes) Other Tobacco use:. Ambulatory Pharmacy Sexual Orientation Ambula tory Pharmacy Gender identity Ambulator y Pharmacy Assessment and Plan Combined list of future care activities from Department of Defense and Veterans Affairs facilities (e.g., assessment and plan notes, appointments, orders, and referrals). Additional future care activities may be listed in the Plan of Care section. Result Assessment and Plan Date Source Assessment and Plan Extracted from:Title : Office Clinic Note - right shoulder pain Author: GABRIEL FISHER Date: 05/06/22 1. P ain in right shoulder 42yo F with chronic right shoulder pain, has failed to improve with PT, she has constant pain to anterior shoulder, she maintains full ROM. plan for MRI and with further plan of care pending result. she declines nsaid or analgesic rx today. Extracted from:Title: Office Clinic Note - BFA Initial Appt Author: NICOLASA KELLY MD Date: 01/18/22 1. P ain in right shoulder BFA as per procedure note. Tolerated well with some improvement in her pain. Return precautions discussed. May repeat in 2 weeks. Send message to team to schedule appt. Med List: T he patient declined a copy of the medication list Prev Med: Defer labs at this time. Rest is up to date. Extracted from:Title: Office Clinic Note - R pectoralis strain Author: NICOLASA KELLY MD Date: 01/13/22 1. S train of chest wall muscle S train of R pectoralis, doubt rotator cuff injury, subacromial bursitis, etc. - Handout with exercises provided to patient at time of appt. Instructed to perform 2-3x/day until pain improves then daily for maintenance - Tylenol/Motrin PRN - May also consider BFA - Referred to PT Y es - F/U in 6 weeks if not improving. May send a message and would consider obtaining an x-ray. Med List: T he patient declined a copy of the medication list Prev Med: Defer HIV/Hep C to next lab draw. Last pap on file is from 2017, need records of any pap more recent. Ordered: Referral Request 2.0 06/03/[address] [place] [address] Functional Status Combined list of recent functional and cognitive assessments recorded at [facility] [employer] [facility] (VA).VA Functional [place] Measurement (FIM) Scale: 1 = Total Assistance (Subject = 0% +), 2 = Maximal Assistance (Subject = 25% +), 3 = Moderate Assistance (Subject = 50% +), 4 = Minimal Assistance (Subject = 75% +), 5 = Supervision, 6 = Modified [place] (Device), 7 = Complete [place] (Timely, Safely). Assessment Date/Time Source Assessment Type Assessment Skill Assessment Score Assessment Details No data available for this section
[2025-06-03 13:31] LABS: Cholesterol 238 mg/dL (0-200); HDL Direct 60 mg/dL; Triglycerides 110 mg/dL (<150)
[2025-06-03 14:14] LABS: Thyroid Stimulating Hormone 1.560 uIU/mL (0.465-4.680)
[2025-06-03 16:10] LABS: Hematocrit 44.3 % (37.0-47.0); Hemoglobin 14.1 g/dL (12.0-15.0); Immature Granulocyte Percent A 0.4 % (0-0.5); Lymphocytes Absolute Auto 1.67 K/mm3 (0.9-3.2); Mean Corpuscular HGB Conc 31.8 g/dl (32-36); Mean Corpuscular Hemoglobin 29.6 pg (26-34); Mean Corpuscular Volume 92.9 fl (80-100); Nucleated Red Blood Cells Absolute Auto 0.000 K/mm3 (0.0-0.012); Nucleated Red Blood Cells Perc 0.0 % (0.0-0.2); Platelet Count Result 186 k/mm3 (150-375); Red Blood Count 4.77 M/mm3 (4.2-5.4); White Blood Count 4.9 K/mm3 (4.5-10.0)
[2025-06-03 16:25] LABS: Alanine Aminotransferase 23 U/L (6-35); Albumin Level 4.5 g/dL (3.5-5.1); Alkaline Phosphatase 76 U/L (38-126); Anion Gap 7 mmol/L (4-12); Aspartate Amino Transferase 48 U/L (14-36); Bilirubin,Total 0.4 mg/dL (0.2-1.3); Blood Urea Nitrogen 22 mg/dL (7-17); CRP < 0.5 mg/dL (<1.0); Calcium 9.5 mg/dL (8.4-10.2); Carbon Dioxide 21 mmol/L (22-30); Chloride 107 mmol/L (98-107); Estimated Glomerular Filt Rate > 60; Glucose 86 mg/dL (65-110); Potassium 4.1 mmol/L (3.4-5.0); Sodium 135 mmol/L (137-145); Total Protein 7.2 g/dL (6.3-8.2)
[2025-06-04 07:09] LABS: FSH 118.0 mIU/mL (.)
[2025-06-05 03:07] LABS: LH 57.1 mIU/mL (.)
[2025-06-05 15:09] LABS: ANA by IFA Rfx Titer/Pattern Negative (.)
[2025-06-10 00:07] LABS: Free Testosterone (Direct) 0.4 pg/mL (0.0-4.2)
[2025-06-10 19:08] LABS: Estradiol, Sensitive 2.8 pg/mL (.)
== END 2025-06-03 11:39 | disposition home or self-care (01) ==
LOC: ANHGOSHLAB 11:39
PROVIDERS: PCP Internal Medicine; Visit Provider Clinical Nurse Specialist
DX: Z13.220 Encounter for screening for lipoid disorders (principal); E55.9 Vitamin D deficiency, unspecified; G47.00 Insomnia, unspecified; M25.40 Effusion, unspecified joint; M25.50 Pain in unspecified joint; N95.1 Menopausal and female climacteric states; Z13.228 Encounter for screening for other metabolic disorders
CPT/HCPCS: 36415; 80053; 80061; 82306; 82670; 83001; 83002; 84144; 84402; 84403; 84443; 85025; 85652; 86038; 86140; 86376; 86430

== ENCOUNTER 2025-09-01 12:27 | Outpatient (CLI) | payer OTHER, SELFPAY ==
--- NOTE | ~2025-09-01 | MM_ITS ---
EXAMINATION: MM scrn juan ramon implant BI w isrrael HISTORY: Screening mammogram TECHNIQUE: Craniocaudal and mediolateral oblique 3-D tomosynthesis images with implant displacement and synthetic 2-D images were generated. Craniocaudal and mediolateral oblique views of the breasts without implant displacement were obtained using full field digital mammography. CAD analysis was submitted and interpreted. COMPARISON: 05/30/2024 BREAST PARENCHYMAL COMPOSITION: Not dense: There are scattered areas of fibroglandular density. FINDINGS: The right breast is stable without evidence for malignancy. There is a new focal asymmetry in the lower central left breast, middle third. There are bilateral subpectoral saline implants. IMPRESSION: 1. New left breast asymmetry. 2. Additional mammographic views and possible breast ultrasound are recommended. BI-RADS Category 0: Incomplete: Needs additional imaging evaluation. Reviewed, dictated and finalized at location B. ECT GEOPHYSICIST IMPRESSION: 1. New left breast asymmetry. 2. Additional mammographic views and possible breast ultrasound are recommended . BI-RADS Category 0: Incomplete: Needs additional imaging evaluation.
--- OUTSIDE RECORDS SUMMARY | 2025-09-01 12:44 | XMS_ITS | Encounter Summary ---
Author Organization [facility] Address [address] [place] [address] Care Team Providers Care Electrical Estimator Name Role Phone Shannan Acosta MD Primary Care Provider [phone] Encounter Details Date Type Department Care Team (Late st Contact Info) Description 06/18/2002 Outpatient Historical [facility] Maternal and Ground Floor S [facility] [address] [place] [address] Song Barahona MD [address] [facility] [address] [place] [address] Social History Tobacco Use Types Packs/Day Years Used Date Smoking Tobacco: Never Assessed Comments Unknown Sex and Gender Information Value Date Recorded Sex Assigned at Not on file Legal Sex Female 3:[address] 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 Gender Identity Not on file Sexual Orientation Not on file documented as of this encounter Plan of Treatment Upcoming Encounters Date Type Department Care Team (Latest Contact Info) Description 09/02/2025 11:[address] 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 Hospital Encounter [address] [place] [phone] Ricky Shaver MD [address] [facility] [address] [place] [address] Encounter for screening for malignant neoplasm of colon 09/02/2025 11:[address] 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 - 09/02/2025 11:[address] 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 Surgery [facility] Endoscopy [address] [place] [address] Ricky Shaver MD [address] [place] [address] COLONOSCOPY Scheduled Procedures Name Priority Associated Diagnoses Date/Ti me COLONOSCOPY Encounter for screening for malignant neoplasm of colon 09/02/2025 11:[address] 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 documented as of this encounter Visit Diagnoses Not on filedocumented in this encounter Care Teams Electrical Estimator Relationship Specialty Start Date End Date Shannan Acosta MD [address] [place] [address] PCP - General 09/27/03 documented as of this encounter
--- OUTSIDE RECORDS SUMMARY | 2025-09-01 12:44 | XMS_ITS | Encounter Summary ---
Author Organization [facility] Address [address] [place] [address] Care Team Providers Care New Car Salesperson Name Role Phone Shannan Acosta MD Primary Care Provider [phone] Encounter Details Date Type Department Care Team (Latest Contact Info) Description 05/30/2002 Outpatient Historical [facility] Shannan Acosta MD [address] [place] [address] HEMORR EARLY PREG-ANTEPART (Primary Dx) Social History Tobacco Use Types Packs/Day Years Used Date Smoking Tobacco: Never Assessed Comments Unknown Sex and Gender Information Value Date Recorded Sex Assigned at Not on file Legal Sex Female 3:27 AM RECONSTRUCTIVE DENTIST Gender Identity Not on file Sexual Orientation Not on file documented as of this encounter Plan of Treatment Upcoming Encounters Date Type Department Care Team (Latest Contact Info) Description 09/02/2025 11:15 AM RECONSTRUCTIVE DENTIST Hospital Encounter [address] [phone] Ricky Shaver MD [address] [place] [address] Encounter for screening for malignant neoplasm of colon 09/02/2025 11:15 AM RECONSTRUCTIVE DENTIST - 09/02/2025 11:45 AM RECONSTRUCTIVE DENTIST Surgery [facility] Endoscopy [address] [place] [phone] Ricky Shaver MD [address] [place] [address] COLONOSCOPY Scheduled Procedures Name Priority Associated Diagnoses Date/Ti me COLONOSCOPY Encounter for screening for malignant neoplasm of colon 09/02/2025 11:15 AM RECONSTRUCTIVE DENTIST documented as of this encounter Visit Diagnoses Diagnosis Unspecified hemorrhage in early , antepartum- Primary Encounter for screening for malignant neoplasm of colon Special screening for malignant neoplasms, colon documented in this encounter Care Teams New Car Salesperson Relationship Specialty Start Date End Date Shannan Acosta MD [address] [facility] [address] [place] [address] PCP - General 09/27/03 documented as of this encounter
--- OUTSIDE RECORDS SUMMARY | 2025-09-01 12:44 | XMS_ITS | Encounter Summary ---
Author Organization [facility] Address [address] [place] [address] Care Team Providers Care Scouring Machine Operator Name Role Phone Shannan Acosta MD Primary Care Provider [phone] Encounter Details Date Type Department Care Team (Latest Contact Info) Description 10/07/2003 Outpatient Historical [facility] Kalyan Calzada MD [address] [facility] [address] [place], [place] [id number] CALCULUS OF KIDNEY (Primary Dx) Social History Tobacco Use Types Packs/Day Years Used Date Smoking Tobacco: Never Assessed Comments Unknown Sex and Gender Information Value Date Recorded Sex Assigned at Not on file Legal Sex Female 3:27 AM ZINC MINER Gender Identity Not on file Sexual Orientation Not on file documented as of this encounter Plan of Treatment Upcoming Encounters Date Type Department Care Team (Latest Contact Info) Description 09/02/2025 11:15 AM ZINC MINER Hospital Encounter [facility] Endoscopy [address] [place] [phone] Ricky Shaver MD [address] [place] [address] Encounter for screening for malignant neoplasm of colon 09/02/2025 11:15 AM ZINC MINER - 09/02/2025 11:45 AM ZINC MINER Surgery [facility] Endoscopy [address] [place] [phone] Ricky Shvaer MD [address] [place] [address] COLONOSCOPY Scheduled Procedures Name Priority Associated Diagnoses Date/Ti me COLONOSCOPY Encounter for screening for malignant neoplasm of colon 09/02/2025 11:15 AM ZINC MINER documented as of this encounter Visit Diagnoses Diagnosis Calculus of kidney- Primary Encounter for screening for malignant neoplasm of colon Special screening for malignant neoplasms, colon documented in this encounter Care Teams Scouring Machine Operator Relationship Specialty Start Date End Date Shannan Acosta MD [address] [facility] [address] [place] [address] PCP - General 09/27/03 documented as of this encounter
--- OUTSIDE RECORDS SUMMARY | 2025-09-01 12:44 | XMS_ITS | Encounter Summary ---
Author Organization [facility] Address [address] [place] [address] Care Team Providers Care Children'S Author Name Role Phone Shannan Acosta MD Primary Care Provider [phone] Encounter Details Date Type Department Care Team (Late st Contact Info) Description 08/29/2004 Emergency [facility] Kvng Pabon MD [address] [place] [address] Er, Authorized P NO ADDRESS ON FILE UNSPECIFIED VIRAL INFECTION (Primary Dx) Social History Tobacco Use Types Packs/Day Years Used Date Smoking Tobacco: Never Assessed Comments Unknown Sex and Gender Information Value Date Recorded Sex Assigned at Not on file Legal Sex Female 3:27 AM COLLECTION CORRESPONDENT Gender Identity Not on file Sexual Orientation Not on file documented as of this encounter Plan of Treatment Upcoming Encounters Date Type Department Care Team (Latest Contact Info) Description 09/02/2025 11:15 AM COLLECTION CORRESPONDENT Hospital Encounter [facility] Endoscopy [address] [address] Ricky Shaver MD [address] [facility] [address] [place] [address] Encounter for screening for malignant neoplasm of colon 09/02/2025 11:15 AM COLLECTION CORRESPONDENT - 09/02/2025 11:45 AM COLLECTION CORRESPONDENT Surgery [facility] Endoscopy [address] [address] Ricky Shaver MD [address] [place] [address] COLONOSCOPY Scheduled Procedures Name Priority Associated Diagnoses Date/Ti me COLONOSCOPY Encounter for screening for malignant neoplasm of colon 09/02/2025 11:15 AM COLLECTION CORRESPONDENT documented as of this encounter Visit Diagnoses Diagnosis Unspecified viral infection, in conditions classified elsewhere and of unspecified site- Primary Encounter for screening for malignant neoplasm of colon Special screening for malignant neoplasms, colon documented in this encounter Care Teams Children'S Author Relationship Specialty Start Date End Date Shannan Acosta MD [address] [facility] [address] [place] [address] PCP - General 09/27/03 documented as of this encounter
--- OUTSIDE RECORDS SUMMARY | 2025-09-01 12:44 | XMS_ITS | Encounter Summary ---
Author Organization [facility] Address [address] [place] [address] Care Team Providers Care Word Processing Operator Name Role Phone Shannan Acosta MD Primary Care Provider [phone] Encounter Details Date Type Department Care Team (Late st Contact Info) Description 04/16/2009 Outpatient Historical [facility] [place] [facility] Yoko Mercedes MD [address] [facility] [address] [place] [address] Unspecified Otitis Media Social History Tobacco Use Types Packs/Day Years Used Date Smoking Tobacco: Former Alcohol Use Standard Drinks/Week Comments Yes 0 (1 standard drink = 0.6 oz pur e alcohol) Comments No Sex and Gender Information Value Date Recorded Sex Assigned at Not on file Legal Sex Female 3:27 AM TUCKPOINTER Gender Identity Not on file Sexual Orientation Not on file documented as of this encounter Plan of Treatment Upcoming Encounters Date Type Department Care Team (Latest Contact Info) Description 09/02/2025 11:15 AM TUCKPOINTER Hospital Encounter [facility] Endoscopy [address] [place] [address] Ricky Shaver MD [address] [facility] [address] [place] [address] Encounter for screening for malignant neoplasm of colon 09/02/2025 11:15 AM TUCKPOINTER - 09/02/2025 11:45 AM TUCKPOINTER Surgery [address] [place] [address] Ricky Shaver MD [address] [place] [address] COLONOSCOPY Scheduled Procedures Name Priority Associated Diagnoses Date/Ti me COLONOSCOPY Encounter for screening for malignant neoplasm of colon 09/02/2025 11:15 AM TUCKPOINTER documented as of this encounter Visit Diagnoses Diagnosis Unspecified otitis media Encounter for screening for malignant neoplasm of colon Special screening for malignant neoplasms, colon documented in this encounter Care Teams Word Processing Operator Relationship Specialty Start Date End Date Shannan Acosta MD [address] [place] [address] PCP - General 09/27/03 documented as of this encounter
--- OUTSIDE RECORDS SUMMARY | 2025-09-01 12:44 | XMS_ITS | Encounter Summary ---
Author Organization [facility] Address [address] [place] [address] Care Team Providers Care Panel Beater Name Role Phone Shannan Acosta MD Primary Care Provider [phone] Encounter Details Date Type Department Care Team (Latest Contact Info) Description 04/29/2001 Outpatient Historical [facility] IN A BED Shannan Acosta MD [address] [place] [address] Threatened premature labor, antepartum(644.03) (Primary Dx) Social History Tobacco Use Types Packs/Day Years Used Date Smoking Tobacco: Never Assessed Comments Unknown Sex and Gender Information Value Date Recorded Sex Assigned at Not on file Legal Sex Female 3:27 AM CLINICAL FACULTY Gender Identity Not on file Sexual Orientation Not on file documented as of this encounter Plan of Treatment Upcoming Encounters Date Type Department Care Team (Latest Contact Info) Description 09/02/2025 11:15 AM CLINICAL FACULTY Hospital Encounter [address] [address] Ricky Shaver MD [address] [facility] [address] [place] [address] Encounter for screening for malignant neoplasm of colon 09/02/2025 11:15 AM CLINICAL FACULTY - 09/02/2025 11:45 AM CLINICAL FACULTY Surgery [address] [address] Ricky Shaver MD [address] [place] [address] COLONOSCOPY Scheduled Procedures Name Priority Associated Diagnoses Date/Ti me COLONOSCOPY Encounter for screening for malignant neoplasm of colon 09/02/2025 11:15 AM CLINICAL FACULTY documented as of this encounter Visit Diagnoses Diagnosis Threatened premature labor, antepartum(644.03)- Primary Threatened premature labor, antepartum Encounter for screening for malignant neoplasm of colon Special screening for malignant neoplasms, colon documented in this encounter Care Teams Panel Beater Relationship Specialty Start Date End Date Shannan Acosta MD [address] [facility] [address] [place] [address] PCP - General 09/27/03 documented as of this encounter
--- OUTSIDE RECORDS SUMMARY | 2025-09-01 12:44 | XMS_ITS | Encounter Summary ---
Author Organization [facility] Address [address] [place] [address] Care Team Providers Care Station Engineer Main Line Name Role Phone Shannan Acosta MD Primary Care Provider [phone] Encounter Details Date Type Department Care Team (Late st Contact Info) Description 06/16/2002 Emergency [facility] Maxime Lou MD NO ADDRESS ON FILE Er, Authorized P NO ADDRESS ON FILE POSTABORTION HEMORRHAGE (Primary Dx) Social History Tobacco Use Types Packs/Day Years Used Date Smoking Tobacco: Never Assessed Comments Unknown Sex and Gender Information Value Date Recorded Sex Assigned at Not on file Legal Sex Female 3:27 AM ELECTRICAL DESIGN TECHNOLOGIST Gender Identity Not on file Sexual Orientation Not on file documented as of this encounter Plan of Treatment Upcoming Encounters Date Type Department Care Team (Latest Contact Info) Description 09/02/2025 11:15 AM ELECTRICAL DESIGN TECHNOLOGIST Hospital Encounter [address] [address] Ricky Shaver MD [address] [place] [address] Encounter for screening for malignant neoplasm of colon 09/02/2025 11:15 AM ELECTRICAL DESIGN TECHNOLOGIST - 09/02/2025 11:45 AM ELECTRICAL DESIGN TECHNOLOGIST Surgery [facility] Endoscopy [address] [place] [address] Ricky Shaver MD [address] [place] [address] COLONOSCOPY Scheduled Procedures Name Priority Associated Diagnoses Date/Ti id COLONOSCOPY Encounter for screening for malignant neoplasm of colon 09/02/2025 11:15 AM ELECTRICAL DESIGN TECHNOLOGIST documented as of this encounter Visit Diagnoses Diagnosis Delayed or excessive hemorrhage following or ectopic and molar pregnancies- Primary Encounter for screening for malignant neoplasm of colon Special screening for malignant neoplasms, colon documented in this encounter Care Teams Station Engineer Main Line Relationship Specialty Start Date End Date Shannan Acosta MD [address] [facility] [address], [place] [address] PCP - General 09/27/03 documented as of this encounter
--- OUTSIDE RECORDS SUMMARY | 2025-09-01 12:44 | XMS_ITS | Encounter Summary ---
Author Organization [facility] Address [address] [place] [address] Care Team Providers Care Video Editing Intern Name Role Phone Shannan Acosta MD Primary Care Provider [phone] Encounter Details Date Type Department Care Team (Latest Contact Info) Description 09/27/2003 Outpatient Historical [facility] Kalyan Calzada MD [address] [facility] [address] [place] [address] OTHER CURR COND- (Primary Dx) Social History Tobacco Use Types Packs/Day Years Used Date Smoking Tobacco: Never Assessed Comments Unknown Sex and Gender Information Value Date Recorded Sex Assigned at Not on file Legal Sex Female 3:27 AM MILKING MACHINE OPERATOR Gender Identity Not on file Sexual Orientation Not on file documented as of this encounter Plan of Treatment Upcoming Encounters Date Type Department Care Team (Latest Contact Info) Description 09/02/2025 11:15 AM MILKING MACHINE OPERATOR Hospital Encounter [address] [place] [address] Ricky Shaver MD [address] [facility] [address] [place] [address] Encounter for screening for malignant neoplasm of colon 09/02/2025 11:15 AM MILKING MACHINE OPERATOR - 09/02/2025 11:45 AM MILKING MACHINE OPERATOR Surgery [address] [place] [address] Ricky Shaver MD [address] [facility] [address] [place] [address] COLONOSCOPY Scheduled Procedures Name Priority Associated Diagnoses Date/Ti me COLONOSCOPY Encounter for screening for malignant neoplasm of colon 09/02/2025 11:15 AM MILKING MACHINE OPERATOR documented as of this encounter Visit Diagnoses Diagnosis Other current maternal conditions classifiable elsewhere, condition or complication- Primary Encounter for screening for malignant neoplasm of colon Special screening for malignant neoplasms, colon documented in this encounter Care Teams Video Editing Intern Relationship Specialty Start Date End Date Shannan Acosta MD [address] [facility] [address] [place] [address] PCP - General 09/27/03 documented as of this encounter
--- OUTSIDE RECORDS SUMMARY | 2025-09-01 12:44 | XMS_ITS | Encounter Summary ---
Author Organization [facility] Address [address] [place] [address] Care Team Providers Care Crm Marketing Analyst Name Role Phone Shannan Acosta MD Primary Care Provider [phone] Encounter Details Date Type Department Care Team (Latest Contact Info) Description 05/15/2001 Inpatient Historical [facility] IN [facility] BED Shannan Acosta MD [address] [place] [address] Unspecified indication for care or intervention related to labor and delivery, antepartum (Primary Dx) Social History Tobacco Use Types Packs/Day Years Used Date Smoking Tobacco: Never Assessed Comments Unknown Sex and Gender Information Value Date Recorded Sex Assigned at Not on file Legal Sex Female 3:[address] Gender Identity Not on file Sexual Orientation Not on file documented as of this encounter Plan of Treatment Upcoming Encounters Date Type Department Care Team (Latest Contact Info) Description 09/02/2025 11:[address] Hospital Encounter [address] [phone] Ricky Shaver MD [address] [facility] [address] [place] [address] Encounter for screening for malignant neoplasm of colon 09/02/2025 11:[address] - 09/02/2025 11:[address] Surgery [facility] Endoscopy [address] [address] Ricky Shaver MD [address] [place] [address] COLONOSCOPY Scheduled Procedures Name Priority Associated Diagnoses Date/Ti me COLONOSCOPY Encounter for screening for malignant neoplasm of colon 09/02/2025 11:[address] documented as of this encounter Visit Diagnoses Diagnosis Unspecified indication for care or intervention related to labor and delivery, antepartum- Primary Encounter for screening for malignant neoplasm of colon Special screening for malignant neoplasms, colon documented in this encounter Care Teams Crm Marketing Analyst Relationship Specialty Start Date End Date Shannan Acosta MD [address] [place] [address] PCP - General 09/27/03 documented as of this encounter
--- OUTSIDE RECORDS SUMMARY | 2025-09-01 12:44 | XMS_ITS | Encounter Summary ---
Author Organization [facility] Address [address] [place] [address] Care Team Providers Care Service Superintendent Name Role Phone Shannan Acosta MD Primary Care Provider [phone] Encounter Details Date Type Department Care Team (Latest Contact Info) Description 06/18/2002 Outpatient Historical [facility] Shannan Acosta MD [address] [place] [address] SPON ABORT UNCOMPL-INC (Primary Dx) Social History Tobacco Use Types Packs/Day Years Used Date Smoking Tobacco: Never Assessed Comments Unknown Sex and Gender Information Value Date Recorded Sex Assigned at Not on file Legal Sex Female 3:27 AM LIBERAL ARTS AND HUMANITIES CHAIR Gender Identity Not on file Sexual Orientation Not on file documented as of this encounter Plan of Treatment Upcoming Encounters Date Type Department Care Team (Latest Contact Info) Description 09/02/2025 11:15 AM LIBERAL ARTS AND HUMANITIES CHAIR Hospital Encounter [facility] Endoscopy [address] [phone] Ricky Shaver MD [address] [place] [address] Encounter for screening for malignant neoplasm of colon 09/02/2025 11:15 AM LIBERAL ARTS AND HUMANITIES CHAIR - 09/02/2025 11:45 AM LIBERAL ARTS AND HUMANITIES CHAIR Surgery [facility] Endoscopy [address] [place] [address] Ricky Shaver MD [address] [place] [address] COLONOSCOPY Scheduled Procedures Name Priority Associated Diagnoses Date/Ti me COLONOSCOPY Encounter for screening for malignant neoplasm of colon 09/02/2025 11:15 AM LIBERAL ARTS AND HUMANITIES CHAIR documented as of this encounter Visit Diagnoses Diagnosis Incomplete spontaneous without mention of complication- Primary Encounter for screening for malignant neoplasm of colon Special screening for malignant neoplasms, colon documented in this encounter Care Teams Service Superintendent Relationship Specialty Start Date End Date Shannan Acosta MD [address] [facility] [address] [place] [address] PCP - General 09/27/03 documented as of this encounter
--- OUTSIDE RECORDS SUMMARY | 2025-09-01 12:44 | XMS_ITS | Encounter Summary ---
Author Organization [facility] Address [address] [place] [address] Care Team Providers Care Position Classifier Name Role Phone Shannan Acosta MD Primary Care Provider [phone] Encounter Details Date Type Department Care Team (Latest Contact Info) Description 05/19/2001 Inpatient Historical HIS PATIENT IN A BED Shannan Acosta MD [address] [place] [address] Other maternal viral disease with delivery (Primary Dx) Social History Tobacco Use Types Packs/Day Years Used Date Smoking Tobacco: Never Assessed Comments Unknown Sex and Gender Information Value Date Recorded Sex Assigned at Not on file Legal Sex Female 3:27 AM ADULT MANAGER Gender Identity Not on file Sexual Orientation Not on file documented as of this encounter Plan of Treatment Upcoming Encounters Date Type Department Care Team (Latest Contact Info) Description 09/02/2025 11:15 AM ADULT MANAGER Hospital Encounter [address] [phone] Ricky Shaver MD [address] [facility] [address] [place] [address] Encounter for screening for malignant neoplasm of colon 09/02/2025 11:15 AM ADULT MANAGER - 09/02/2025 11:45 AM ADULT MANAGER Surgery [facility] Endoscopy [address] [place] [phone] Ricky Shaver MD [address] [facility] [address] [place] [address] COLONOSCOPY Scheduled Procedures Name Priority Associated Diagnoses Date/Ti me COLONOSCOPY Encounter for screening for malignant neoplasm of colon 09/02/2025 11:15 AM ADULT MANAGER documented as of this encounter Visit Diagnoses Diagnosis Other maternal viral disease with delivery- Primary Encounter for screening for malignant neoplasm of colon Special screening for malignant neoplasms, colon documented in this encounter Care Teams Position Classifier Relationship Specialty Start Date End Date Shannan Acosta MD [address] [facility] [address] [place] [address] PCP - General 09/27/03 documented as of this encounter
--- OUTSIDE RECORDS SUMMARY | 2025-09-01 12:44 | XMS_ITS | Encounter Summary ---
Author Organization [facility] Address [address] [place] [address] Care Team Providers Care Ibm Websphere Commerce Developer Name Role Phone Shannan Acosta MD Primary Care Provider [phone] Encounter Details Date Type Department Care Team (Latest Contact Info) Description 05/31/2002 Outpatient Historical HIS PATIENT IN A BED Maxime Dixon MD [address] [facility] [place] [address] [address] Shannan Acosta MD [address] [place] [address] SPON ABORT UNCOMPL-INC (Primary Dx) Social History Tobacco Use Types Packs/Day Years Used Date Smoking Tobacco: Never Assessed Comments Unknown Sex and Gender Information Value Date Recorded Sex Assigned at Not on file Legal Sex Female 3:27 AM TRANSFER AND PUMPHOUSE OPERATOR Gender Identity Not on file Sexual Orientation Not on file documented as of this encounter Plan of Treatment Upcoming Encounters Date Type Department Care Team (Latest Contact Info) Description 09/02/2025 11:15 AM TRANSFER AND PUMPHOUSE OPERATOR Hospital Encounter [facility] Endoscopy [address] [place] [phone] Ricky Shaver MD [address] [facility] [address] [place] [address] Encounter for screening for malignant neoplasm of colon 09/02/2025 11:15 AM TRANSFER AND PUMPHOUSE OPERATOR - 09/02/2025 11:45 AM TRANSFER AND PUMPHOUSE OPERATOR Surgery [facility] Endoscopy [facility] [address] [place] [address] [address] [place] [address] Ricky Shaver MD [address] [place] [address] COLONOSCOPY Scheduled Procedures Name Priority Associated Diagnoses Date/Ti me COLONOSCOPY Encounter for screening for malignant neoplasm of colon 09/02/2025 11:15 AM TRANSFER AND PUMPHOUSE OPERATOR documented as of this encounter Visit Diagnoses Diagnosis Incomplete spontaneous without mention of complication- Primary Encounter for screening for malignant neoplasm of colon Special screening for malignant neoplasms, colon documented in this encounter Care Teams Ibm Websphere Commerce Developer Relationship Specialty Start Date End Date Shannan Acosta MD [address] [place] [address] PCP - General 09/27/03 documented as of this encounter
--- OUTSIDE RECORDS SUMMARY | 2025-09-01 12:44 | XMS_ITS | Encounter Summary ---
Author Organization [facility] Address [address] [place] [address] Care Team Providers Care Loan Review Officer Name Role Phone Shannan Acosta MD Primary Care Provider [phone] Encounter Details Date Type Department Care Team (Latest Contact Info) Description 07/10/2003 Outpatient Historical HIS PATIENT IN A BED Shannan Acosta MD [address] [place] [address] THRT [employer]-ANTE[employer] (Primary Dx) Social History Tobacco Use Types Packs/Day Years Used Date Smoking Tobacco: Never Assessed Comments Unknown Sex and Gender Information Value Date Recorded Sex Assigned at Not on file Legal Sex Female 3:27 AM SUPERVISOR HISTOLOGY Gender Identity Not on file Sexual Orientation Not on file documented as of this encounter Plan of Treatment Upcoming Encounters Date Type Department Care Team (Latest Contact Info) Description 09/02/2025 11:15 AM SUPERVISOR HISTOLOGY Hospital Encounter [facility] Endoscopy [address] [phone] Ricky Shaver MD [address] [facility] [address] [place] [address] Encounter for screening for malignant neoplasm of colon 09/02/2025 11:15 AM SUPERVISOR HISTOLOGY - 09/02/2025 11:45 AM SUPERVISOR HISTOLOGY Surgery [facility] Endoscopy [address] [place] [phone] Ricky Shaver MD [address] [facility] [address] [place] [address] COLONOSCOPY Scheduled Procedures Name Priority Associated Diagnoses Date/Ti me COLONOSCOPY Encounter for screening for malignant neoplasm of colon 09/02/2025 11:15 AM SUPERVISOR HISTOLOGY documented as of this encounter Visit Diagnoses Diagnosis Threatened premature labor, antepartum(644.03)- Primary Threatened premature labor, antepartum Encounter for screening for malignant neoplasm of colon Special screening for malignant neoplasms, colon documented in this encounter Care Teams Loan Review Officer Relationship Specialty Start Date End Date Shannan Acosta MD [address] [facility] [address] [place] [address] PCP - General 09/27/03 documented as of this encounter
--- OUTSIDE RECORDS SUMMARY | 2025-09-01 12:44 | XMS_ITS | Encounter Summary ---
Author Organization [facility] Address [address] [place] [address] Care Team Providers Care Rack Pusher Name Role Phone Shannan Acosta MD Primary Care Provider [phone] Encounter Details Date Type Department Care Team (Latest Contact Info) Description 08/08/2003 Inpatient Historical HIS PATIENT IN A BED Shannan Acosta MD [address] [place] [address] PREV DELIVERY NOS-DELIVER (Primary Dx) Social History Tobacco Use Types Packs/Day Years Used Date Smoking Tobacco: Never Assessed Comments Unknown Sex and Gender Information Value Date Recorded Sex Assigned at Not on file Legal Sex Female 3:27 AM MERCHANDISE EXECUTION LEADER Gender Identity Not on file Sexual Orientation Not on file documented as of this encounter Plan of Treatment Upcoming Encounters Date Type Department Care Team (Latest Contact Info) Description 09/02/2025 11:15 AM MERCHANDISE EXECUTION LEADER Hospital Encounter [address] [phone] Ricky Shaver MD [address] [facility] [address] [place] [address] Encounter for screening for malignant neoplasm of colon 09/02/2025 11:15 AM MERCHANDISE EXECUTION LEADER - 09/02/2025 11:45 AM MERCHANDISE EXECUTION LEADER Surgery [address] [place] [phone] Ricky Shaver MD [address] [facility] [address] [place] [address] COLONOSCOPY Scheduled Procedures Name Priority Associated Diagnoses Date/Ti me COLONOSCOPY Encounter for screening for malignant neoplasm of colon 09/02/2025 11:15 AM MERCHANDISE EXECUTION LEADER documented as of this encounter Visit Diagnoses Diagnosis Previous delivery, delivered, with or without mention of antepartum condition- Primary Encounter for screening for malignant neoplasm of colon Special screening for malignant neoplasms, colon documented in this encounter Care Teams Rack Pusher Relationship Specialty Start Date End Date Shannan Acosta MD [address] [facility] [address] [place] [address] PCP - General 09/27/03 documented as of this encounter
--- OUTSIDE RECORDS SUMMARY | 2025-09-01 12:44 | XMS_ITS | Encounter Summary ---
Author Organization [facility] Address [address] [place] [address] Care Team Providers Care Toy Assembler Name Role Phone Shannan Acosta MD Primary Care Provider [phone] Encounter Details Date Type Department Care Team (Latest Contact Info) Description 09/29/2000 Outpatient Historical HIS OBSERVATION BED Jose, Francy Mild hyperemesis gravidarum, antepartum (Primary Dx) Social History Tobacco Use Types Packs/Day Years Used Date Smoking Tobacco: Never Assessed Comments Unknown Sex and Gender Information Value Date Recorded Sex Assigned at Not on file Legal Sex Female 3:27 AM SYSTEM ARCHIVE ANALYST Gender Identity Not on file Sexual Orientation Not on file documented as of this encounter Plan of Treatment Upcoming Encounters Date Type Department Care Team (Latest Contact Info) Description 09/02/2025 11:15 AM SYSTEM ARCHIVE ANALYST Hospital Encounter [address] [address] Ricky Shaver MD [address] [facility] [address] [place] [address] Encounter for screening for malignant neoplasm of colon 09/02/2025 11:15 AM SYSTEM ARCHIVE ANALYST - 09/02/2025 11:45 AM SYSTEM ARCHIVE ANALYST Surgery [facility] Endoscopy [address] [place] [phone] Ricky Shaver MD [address] [place] [phone] COLONOSCOPY Scheduled Procedures Name Priority Associated Diagnoses Date/Ti me COLONOSCOPY Encounter for screening for malignant neoplasm of colon 09/02/2025 11:15 AM SYSTEM ARCHIVE ANALYST documented as of this encounter Visit Diagnoses Diagnosis Mild hyperemesis gravidarum, antepartum- Primary Encounter for screening for malignant neoplasm of colon Special screening for malignant neoplasms, colon documented in this encounter Care Teams Toy Assembler Relationship Specialty Start Date End Date Shannan Acosta MD [address] [facility] [address] [place] [address] PCP - General 09/27/03 documented as of this encounter
--- OUTSIDE RECORDS SUMMARY | 2025-09-01 12:44 | XMS_ITS | Encounter Summary ---
Author Organization [facility] Address [address] [place] [address] Care Team Providers Care Classroom Aide Name Role Phone Shannan Acosta MD Primary Care Provider [phone] Encounter Details Date Type Department Care Team (Latest Contact Info) Description 05/01/2001 Inpatient Historical HIS PATIENT IN A BED Shannan Acosta MD [address] [place] [address] Transient hypertension of , antepartum (Primary Dx) Social History Tobacco Use Types Packs/Day Years Used Date Smoking Tobacco: Never Assessed Comments Unknown Sex and Gender Information Value Date Recorded Sex Assigned at Not on file Legal Sex Female 3:27 AM FLOOR STEWARD/STEWARDESS Gender Identity Not on file Sexual Orientation Not on file documented as of this encounter Plan of Treatment Upcoming Encounters Date Type Department Care Team (Latest Contact Info) Description 09/02/2025 11:15 AM FLOOR STEWARD/STEWARDESS Hospital Encounter [address] [phone] Ricky Shaver MD [address] [facility] [address] [place] [address] Encounter for screening for malignant neoplasm of colon 09/02/2025 11:15 AM FLOOR STEWARD/STEWARDESS - 09/02/2025 11:45 AM FLOOR STEWARD/STEWARDESS Surgery [facility] Endoscopy [address] [place] [phone] Ricky Shaver MD [address] [facility] [address] [place] [address] COLONOSCOPY Scheduled Procedures Name Priority Associated Diagnoses Date/Ti me COLONOSCOPY Encounter for screening for malignant neoplasm of colon 09/02/2025 11:15 AM FLOOR STEWARD/STEWARDESS documented as of this encounter Visit Diagnoses Diagnosis Transient hypertension of , antepartum- Primary Encounter for screening for malignant neoplasm of colon Special screening for malignant neoplasms, colon documented in this encounter Care Teams Classroom Aide Relationship Specialty Start Date End Date Shannan Acosta MD [address] [facility] [address] [place] [address] PCP - General 09/27/03 documented as of this encounter
--- OUTSIDE RECORDS SUMMARY | 2025-09-01 12:44 | XMS_ITS | Encounter Summary ---
Author Organization [facility] Address [address] [place] [address] Care Team Providers Care Throw Out Clerk Name Role Phone Shannan Acosta MD Primary Care Provider [phone] Encounter Details Date Type Department Care Team (Latest Contact Info) Description 03/17/2001 Outpatient Historical HIS PATIENT IN A BED Andrade Liriano MD NO ADDRESS ON FILE Shannan Acosta MD [address] [place] [address] Other current maternal conditions classifiable elsewhere, antepartum (Primary Dx) Social History Tobacco Use Types Packs/Day Years Used Date Smoking Tobacco: Never Assessed Comments Unknown Sex and Gender Information Value Date Recorded Sex Assigned at Not on file Legal Sex Female 3:27 AM MICROBIOLOGY PROFESSOR Gender Identity Not on file Sexual Orientation Not on file documented as of this encounter Plan of Treatment Upcoming Encounters Date Type Department Care Team (Latest Contact Info) Description 09/02/2025 11:15 AM MICROBIOLOGY PROFESSOR Hospital Encounter [address] [place] [address] Ricky Shaver MD [address] [facility] [address] [place] [address] Encounter for screening for malignant neoplasm of colon 09/02/2025 11:15 AM MICROBIOLOGY PROFESSOR - 09/02/2025 11:45 AM MICROBIOLOGY PROFESSOR Surgery [address] [place] [address] Ricky Shaver MD [address] [facility] [address] [place] [address] COLONOSCOPY Scheduled Procedures Name Priority Associated Diagnoses Date/Ti me COLONOSCOPY Encounter for screening for malignant neoplasm of colon 09/02/2025 11:15 AM MICROBIOLOGY PROFESSOR documented as of this encounter Visit Diagnoses Diagnosis Other current maternal conditions classifiable elsewhere, antepartum- Primary Encounter for screening for malignant neoplasm of colon Special screening for malignant neoplasms, colon documented in this encounter Care Teams Throw Out Clerk Relationship Specialty Start Date End Date Shannan Acosta MD [address] [place] [address] PCP - General 09/27/03 documented as of this encounter
--- OUTSIDE RECORDS SUMMARY | 2025-09-01 12:44 | XMS_ITS | Encounter Summary ---
Author Organization [facility] Address [address] [place] [address] Care Team Providers Care Investigation Division Captain Name Role Phone Shannan Acosta MD Primary Care Provider Encounter Details Date Type Department Care Team (Late st Contact Info) Description 03/06/2015 Nurse Triage Report [facility] ABSTRACTION Suzanna Bran, RN Social History Tobacco Use Types Packs/Day Years Used Date Smoking Tobacco: Former Alcohol Use Standard Drinks/Week Comments Yes 0 (1 standard drink = 0.6 oz pur e alcohol) Comments No Sex and Gender Information Value Date Recorded Sex Assigned at Not on file Legal Sex Female 3:27 AM COMBATANT DIVER OFFICER Gender Identity Not on file Sexual Orientation Not on file documented as of this encounter Progress Notes * Suzanna Bran RN - 03/06/2015 6:05 AM CDT CHART DOCUMENTATION ONLY Call Type: Triage Call Presenting Problem: 'I bruised my hand at work. [facility] has asked [facility] to provide this triage service to their co-workers who have experienced a health concern during their workshift This service is provided to assist coworkers in making an informed decision regarding appropriate care for a health concern Yes What happened? What caused the incident? Where did it happen? Was in the 6th floor medication room pulling a bag of IV fluids. She grabbed the bag and hit her hand on the metal rack. What time did it happen-onset? 03/05/15 2130 Was safety equipment involved (lift or personal protective)? No Type of injury/illness/associated symptoms. Which body part/location on body part? Other symptoms: right middle finger; finger is tender to touch, swollen and bruised Pain Assessment: 1 - 10 with 10 being the most severe pain: 2-3 Treatment so far: ice pack to area History (Clinical Problems): (Denies) Medications: BCP Have you notified your paster supervisor? YES Lisa Juan (charge nurse) Please complete an injury report within 24 hours. The report is found on [facility] under Communities. Click on [facility] Dept/Workers Comp/Forms and map of clinic. YES Were there any witnesses? Names of witnesses: NO <<<<<<<< TRIAGE NOTE >>>>>>>> <<<<<<<< TRIAGE/OUTCOME >>>>>>>> Guideline Title: Hand Injury Recommended Disposition: See Provider within 24 hours Original Inclination: Call Provider/See in 24 Intended Action: Call or See Provider within 24 hrs Physician Contacted: No Unable or significantly limited in ability to carry out usual activities due to decreased range of motion or loss of strength (unable to raise arm, difficulty lifting, decreased ability to throw,etc.) ? YES documented in this encounter Plan of Treatment Upcoming Encounters Date Type Department Care Team (Latest Contact Info) Description 09/02/2025 11:15 AM COMBATANT DIVER OFFICER Hospital Encounter [facility] Endoscopy [facility] [address] [place] [address] [address] [place] [address] Ricky Shaver MD [address] [facility] [address] [place] [address] Encounter for screening for malignant neoplasm of colon 09/02/2025 11:15 AM COMBATANT DIVER OFFICER - 09/02/2025 11:45 AM COMBATANT DIVER OFFICER Surgery [facility] [address] [place] [address] Ricky Shaver MD [address] [place] [address] COLONOSCOPY Scheduled Procedures Name Priority Associated Diagnoses Date/Ti me COLONOSCOPY Encounter for screening for malignant neoplasm of colon 09/02/2025 11:15 AM COMBATANT DIVER OFFICER documented as of this encounter Visit Diagnoses Not on filedocumented in this encounter Care Teams Investigation Division Captain Relationship Specialty Start Date End Date Shannan Acosta MD [address] [place] [address] PCP - General 09/27/03 documented as of this encounter
--- OUTSIDE RECORDS SUMMARY | 2025-09-01 12:44 | XMS_ITS | Clinical Summary ---
Author Organization [facility] Address [address] [place] [address] Care Team Providers Care Purchasing Administrative Assistant Name Role Phone Shannan Acosta MD Primary Care Provider [phone] Allergies Active Allergy Reactions Criticality Noted Date Comments Chlorhexidine Rash Low 08/18/2025 Medications VALACYCLOVIR HCL (VALTREX PO)Indications :Recurrent acute otitis media Take by mouth. Activ e Fluticasone Furoate (VERAMYST) 27.5 mcg/Actuation Both Nostril SpSnIndication s:Recurrent acute otitis media Administer 2 Sprays in each nostril daily. 1 Bottle 6 9 Active peg 3350-electroly madeline (COLYTE) 240-22.72-6.72 -5.84 gram solution Take 4,000 mL by mouth one time only for 1 dose. Follow prescribing physician's instructions ONLY. These were sent by mail or email. 4000 mL 5 08/18/20 25 Active Problems Problem Noted Date Diagnosed Date Perennial allergic rhinitis 04/16/2009 Recurrent acute otitis media 04/16/2009 Encounters Date Type Department Care Team Description 08/18/2025 Abstract [facility] [address] [facility] [address] [place] [address] Vivi Landers RN 07/23/2025 Transcribe Orders Central Test Scheduling [address] [place] [address] Oma Choi MD Visit for screening mammogram (Primary Dx) from Last 3 Months Immunizations Immunization Administration Dates Next Due Influenza Seasonal Unspecified Formulation IM Influenza Vaccine Quad Split 3+ Yrs Im 5,08/07/2014 Family History Medical History Relation Name Comments Allergic Rhinitis Mother Colon Cancer Neg Hx Immunodeficiency Neg Hx Relation Name Status Comments Father Alive Mother Alive Sister Social History Tobacco Use Types Packs/Day Years Used Date Smoking Tobacco: Former Alcohol Use Standard Drinks/Week Comments Yes 0 (1 standard drink = 0.6 oz pur e alcohol) Comments No Sex and Gender Information Value Date Recorded Sex Assigned at Not on file Legal Sex Female 3:27 AM INTERNET SALES MANAGER Gender Identity Not on file Sexual Orientation Not on file Last Filed Vital Signs Vital Sign Reading Time Taken Comments Blood Pressure - - Pulse - - Temperature - - Respiratory Rate - - Oxygen Saturation - - Inhaled Oxygen Concentration - - Weight 78.5 kg (172 lb 15.9 oz) 08/18/2025 1:45 PM CDT Height 160 cm (5' 3) 08/18/2025 1:45 PM CDT Body Mass Index 30.64 08/18/2025 1:45 PM CDT Plan of Treatment Upcoming Encounters Date Type Department Care Team (Latest Contact Info) Description 09/02/2025 11:15 AM INTERNET SALES MANAGER Hospital Encounter [address] [place] [address] Ricky Shaver MD [address] [facility] [address] [place] [address] Encounter for screening for malignant neoplasm of colon 09/02/2025 11:15 AM INTERNET SALES MANAGER - 09/02/2025 11:45 AM INTERNET SALES MANAGER Surgery [address] [place] [address] Ricky Shaver MD [address] [facility] [address] [place] [address] COLONOSCOPY Scheduled Procedures Name Priority Associated Diagnoses Date/Ti me COLONOSCOPY Encounter for screening for malignant neoplasm of colon 09/02/2025 11:15 AM INTERNET SALES MANAGER Health Maintenance Due Date Last Done Comments Pre-Diabetes and Diabetes Screening 1978 DTAP/TDAP/TD VACCINES (1 - Tdap) 1997 HEPATITIS B VACCINES (1 of 3 - 19+ 3-dose series) 1997 HPV/Cotest (21-29) 1999 CERVICAL CANCER SCREENING 2008 HPV/Cotest (30-65) 2008 PAP SMEAR 2008 BREAST CANCER SCREENING 2018 COLORECTAL SCREENING 2023 Colorectal Cancer Screening 2023 FIT-DNA Q 3 years 2023 FIT/FOBT Q 1 year 2023 Flex Sig/CT Colonography Q 5 years 2023 INFLUENZA VACCINE Completed 08/06/2025, , 08/07/2014 Goals Goal Patient Goal Type Associated Problems Recent Progress Patient-Stated? Author Autogenerat ed Goal Care Plan Autogenerated Problem No Yesica Oconnell CNA Additional Health Concerns Active Problems Noted Date Diagnosed Date Autogenerated Problem 08/18/2025 Insurance [facility] Care Teams Purchasing Administrative Assistant Relationship Specialty Start Date End Date Shannan Acosta MD [address] [facility] [address] [place] [address] PCP - General 09/27/03
--- OUTSIDE RECORDS SUMMARY | 2025-09-01 12:44 | XMS_ITS | Encounter Summary ---
Author Organization [facility] Address [address] [place] [address] Care Team Providers Care Ladies Attendant Name Role Phone Shannan Acosta MD Primary Care Provider [phone] Encounter Details Date Type Department Care Team (Late st Contact Info) Description 08/27/2003 Emergency [facility] Nathan Bedoya, [address] [facility] [address] [place] [address] Er, Authorized P NO ADDRESS ON FILE ABDOMINAL PAIN OTHER SPEC SITE (Primary Dx) Social History Tobacco Use Types Packs/Day Years Used Date Smoking Tobacco: Never Assessed Comments Unknown Sex and Gender Information Value Date Recorded Sex Assigned at Not on file Legal Sex Female 3:27 AM FUSE ASSEMBLER Gender Identity Not on file Sexual Orientation Not on file documented as of this encounter Plan of Treatment Upcoming Encounters Date Type Department Care Team (Latest Contact Info) Description 09/02/2025 11:15 AM FUSE ASSEMBLER Hospital Encounter [facility] Endoscopy [address] [place] [address] Ricky Shaver MD [address] [facility] [address] [place] [address] Encounter for screening for malignant neoplasm of colon 09/02/2025 11:15 AM FUSE ASSEMBLER - 09/02/2025 11:45 AM FUSE ASSEMBLER Surgery [address] [place] [address] Ricky Shaver MD [address] [place] [address] COLONOSCOPY Scheduled Procedures Name Priority Associated Diagnoses Date/Ti me COLONOSCOPY Encounter for screening for malignant neoplasm of colon 09/02/2025 11:15 AM FUSE ASSEMBLER documented as of this encounter Visit Diagnoses Diagnosis Abdominal pain, other specified site- Primary Encounter for screening for malignant neoplasm of colon Special screening for malignant neoplasms, colon documented in this encounter Care Teams Ladies Attendant Relationship Specialty Start Date End Date Shannan Acosta MD [address] [place] [address] PCP - General 09/27/03 documented as of this encounter
--- OUTSIDE RECORDS SUMMARY | 2025-09-01 12:44 | XMS_ITS | Encounter Summary ---
Author Organization [facility] Address [address] [place] [address] Care Team Providers Care Director Imaging Name Role Phone Shannan Acosta MD Primary Care Provider [phone] Encounter Details Date Type Department Care Team (Latest Contact Info) Description 05/09/2001 Outpatient Historical [facility] Shannan Acosta MD [address] [place] [address] Unspecified high-risk (Primary Dx) Social History Tobacco Use Types Packs/Day Years Used Date Smoking Tobacco: Never Assessed Comments Unknown Sex and Gender Information Value Date Recorded Sex Assigned at Not on file Legal Sex Female 3:27 AM LUNCHROOM MOTHER Gender Identity Not on file Sexual Orientation Not on file documented as of this encounter Plan of Treatment Upcoming Encounters Date Type Department Care Team (Latest Contact Info) Description 09/02/2025 11:15 AM LUNCHROOM MOTHER Hospital Encounter [facility] Endoscopy [address] [address] Ricky Shaver MD [address] [place] [address] Encounter for screening for malignant neoplasm of colon 09/02/2025 11:15 AM LUNCHROOM MOTHER - 09/02/2025 11:45 AM LUNCHROOM MOTHER Surgery [address] [place] [address] Ricky Shaver MD [address] [place] [address] COLONOSCOPY Scheduled Procedures Name Priority Associated Diagnoses Date/Ti me COLONOSCOPY Encounter for screening for malignant neoplasm of colon 09/02/2025 11:15 AM LUNCHROOM MOTHER documented as of this encounter Visit Diagnoses Diagnosis Unspecified high-risk - Primary Encounter for screening for malignant neoplasm of colon Special screening for malignant neoplasms, colon documented in this encounter Care Teams Director Imaging Relationship Specialty Start Date End Date Shannan Acosta MD [address] [facility] [address] [place] [address] PCP - General 09/27/03 documented as of this encounter
--- OUTSIDE RECORDS SUMMARY | 2025-09-01 12:44 | XMS_ITS | Encounter Summary ---
Author Organization [facility] Address [address] [place] [address] Care Team Providers Care Surgical Nurse Name Role Phone Shannan Acosta MD Primary Care Provider [phone] Encounter Details Date Type Department Care Team (Latest Contact Info) Description 02/05/2001 Outpatient Historical [facility] PATIENT IN A BED hSannan Acosta MD [address] [place] [address] Other specified complication, antepartum(646.83) (Primary Dx) Social History Tobacco Use Types Packs/Day Years Used Date Smoking Tobacco: Never Assessed Comments Unknown Sex and Gender Information Value Date Recorded Sex Assigned at Not on file Legal Sex Female 3:27 AM BATTERY ASSEMBLER PLASTIC Gender Identity Not on file Sexual Orientation Not on file documented as of this encounter Plan of Treatment Upcoming Encounters Date Type Department Care Team (Latest Contact Info) Description 09/02/2025 11:15 AM BATTERY ASSEMBLER PLASTIC Hospital Encounter [address] [address] Ricky Shaver MD [address] [place] [address] Encounter for screening for malignant neoplasm of colon 09/02/2025 11:15 AM BATTERY ASSEMBLER PLASTIC - 09/02/2025 11:45 AM BATTERY ASSEMBLER PLASTIC Surgery [address] [address] Ricky Shaver MD [address] [place] [address] COLONOSCOPY Scheduled Procedures Name Priority Associated Diagnoses Date/Ti me COLONOSCOPY Encounter for screening for malignant neoplasm of colon 09/02/2025 11:15 AM BATTERY ASSEMBLER PLASTIC documented as of this encounter Visit Diagnoses Diagnosis Other specified complication, antepartum(646.83)- Primary Other specified complication, antepartum Encounter for screening for malignant neoplasm of colon Special screening for malignant neoplasms, colon documented in this encounter Care Teams Surgical Nurse Relationship Specialty Start Date End Date Shannan Acosta MD [address] [facility] [address] [place] [address] PCP - General 09/27/03 documented as of this encounter
--- OUTSIDE RECORDS SUMMARY | 2025-09-01 12:44 | XMS_ITS | Clinical Summary ---
Author Organization [facility] Address [address] [place] [address] Care Team Providers Care Parks And Recreation Manager Name Role Phone Sherie Ferguson NP Primary Care Provider [phone] Ricky Hernandez MD Unavailable [phone] Allergies Active Allergy Reactions Criticality Noted Date Comments Adhesive Tape-Silicones Itching,Rash Medium 07/08/2019 Chlorhexidine Rash Medium 11/02/2023 Skin-rash Medications cetirizine (ZyrTEC) 10 mg chewable tablet Take 1 tablet (10 mg total) by mouth daily as needed for allergies Active doxylamine succinate (UNISOM, DOXYLAMINE, ORAL) Take 12.5 mg by mouth nightly 2 Active valACYclovir (VALTREX) 500 mg tablet [...] ORAL) Take 1 capsule by mouth nightly Currently on hold for surgery Active meloxicam (MOBIC) 15 mg tablet TAKE 1 TABLET(15 MG) BY MOUTH DAILY 30 tablet 3 4 Active acetaminophen ER (TYLENOL) 650 mg 8 hr tablet Take 1 tablet (650 mg total) by mouth every 8 (eight) hours as needed for pain Active multivitamin with minerals tablet Take 1 tablet by mouth nightly Active UNABLE TO FIND Take 1 each by mouth daily Med Name: Magnesium oral 1 tablet daily Active traMADoL (ULTRAM) 50 mg tablet Take 1 tablet (50 mg total) by mouth every 6 (six) hours 10 tablet Active Active Problems Problem Noted Date Diagnosed Date Carpal tunnel syndrome of right wrist 06/09/2025 Trigger middle finger of right hand 06/09/2025 Trigger ring finger of right hand 06/09/2025 S/P arthroscopy of right shoulder 11/30/2023 Shoulder pain 11/30/2023 H/O: hysterectomy 10/02/2023 Rotator cuff impingement syndrome of right shoul juanjose 09/08/2023 Bursitis of right shoulder 09/08/2023 Ankle pain 02/25/2016 Encounters Date Type Department Care Team Description 07/14/2025 11:15 AM CDT Office Visit [facility] Hand Surgery [address] [place] [address] [address] [place] [phone] Elizabeth Simpson MD Carpal tunnel syndrome of right wrist (Primary Dx) 07/14/2025 Telephone [facility] Orthopedics and Sports Medicine [address] [phone] Elizabeth Simpson MD wrist brace question 07/01/2025 11:39 AM CDT Anesthesia Event [facility] OR [address] [place] [address] Kaveh Angel MD Boivin, James R., MD 07/01/2025 11:15 AM CDT - 07/01/2025 12:15 PM CDT Surgery [facility] OR [address] [place] [address] Elizabeth Simpson MD RELEASE CARPAL TUNNEL RIGHT OPEN, RELEASE RIGHT MIDDLE AND RIGHT RING A1 NAVIN 07/01/2025 8:22 AM CDT - 07/01/2025 2:32 PM CDT Hospital Encounter [facility] [place] [address] [place] [address] Elizabeth Simpson MD Carpal tunnel syndrome of right wrist (Primary Dx); Trigger middle finger of right hand; Trigger ring finger of right hand Discharge Disposition: Discharge to home or self care 06/09/2025 1:30 PM CDT Office Visit [facility] Hand Surgery [address] [place] [address] [place] [phone] Elizabeth Simpson MD Carpal tunnel syndrome of right wrist (Primary Dx); Trigger middle finger of right hand from Last 3 Months Surgical History Surgery Date Site/Laterality Comments SECTION 2000 2002 HYSTERECTOMY COSMETIC SURGERY LITHOTRIPSY Right SHOULDER ARTHROSCOPY 09/22/2023 - 10/22/2023 Right Medical History Medical History Date Comments GERD (gastroesophageal reflux disease) Kidney stone litho Obesity Social History Tobacco Use Types Packs/Day Years Used Date Smoking Tobacco: Never Passive Smoke Exposure: Never Smokeless Tobacco: Never Tobacco Cessation:Counseling Given: Not Answered Alcohol Use Standard Drinks/Week Comments Yes 0 (1 standard drink = 0.6 oz pur e alcohol) AUDIT-C Answer Date Recorded Frequency of Alcohol Consumption Not on file 07/01/2025 Q2: How many drinks containi ng alcohol do you have on a typical day when you are drinking? Patient does not drink Frequency of Binge Drinking Not on file 06/2025 Personal Safety Answer Date Recorded Have you ever been in or are you currently in a harmful physical or emotional relationship or is someone making you feel afraid or unsafe? 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 Gender Identity Not on file Sexual Orientation Not on file Last Filed Vital Signs Vital Sign Reading Time Taken Comments Blood Pressure 110/72 07/01/2025 2:18 PM CDT Pulse 69 07/01/2025 2:18 PM CDT Temperature 36.4 C (97.5 F) 07/01/2025 1:05 PM CDT Respiratory Rate 18 07/01/2025 2:18 PM CDT Oxygen Saturation 96% 07/01/2025 2:18 PM CDT Inhaled Oxygen Concentration - - Weight 80.2 kg (176 lb 12.8 oz) 07/01/2025 8:52 AM CDT Height 160 cm (5' 3) 07/01/2025 8:52 AM CDT Body Mass Index 31.32 07/01/2025 8:52 AM CDT Plan of Treatment Health Maintenance Due Date Last Done Comments Breast Cancer Screening-Mammogram 1978 Colon Cancer Screening-Colonoscopy 1978 Depression Screening 1978 Hepatitis C Screening 1978 Regular Well Visit/Exam 18-64 1996 Influenza Vaccine (#1) 2025 , 08/25/2022, 08/29/2016, Additional history exists DTaP/Tdap/Td Vaccine (3 - Td or Tdap) 01/10/2026 01/11/2016, 03/09/2010 Hepatitis B Screening Completed 08/31/2010 , 08/31/2010, 05/11/2010, Additional history exists Pneumococcal vaccine <65 Aged Out No longer eligible based on patient's age to complete this topic Medical Devices Implanted Type Area Director Of Corporate Marketing Device Identifier Shelf Expiration Date Model / Serial / Lot Breast Breast Bilateral: Breast Procedures Procedure Name Priority Date/Time Associated Diagnosis Comments RELEASE CARPAL TUNNEL 07/01/2025 11:39 AM CDT Carpal tunnel syndrome of right wrist Trigger middle finger of right hand Trigger ring finger of right hand Case Notes MAC 30 MINSRIGHT CARPAL TUNNEL RELEASE AND RIGHT MIDDLE AND RING FINGERS A1 NAVIN RELEASE from Last 3 Months Insurance [facility] Care Teams Parks And Recreation Manager Relationship Specialty Start Date End Date Sherie Ferguson, SERVICE WRITER ADVISOR [facility] [facility] [address] [place] [address] PCP - General Cardiovascular Disease 10/17/23 Ricky Hernandez MD [facility] [facility] [address] [place] [address] Consulting Physician Orthopedic Surgery 10/17/23
== END 2025-09-01 12:28 | disposition home or self-care (01) ==
LOC: CHSIMG 12:29
PROVIDERS: PCP Internal Medicine; Visit Provider Clinical Nurse Specialist
DX: Z12.31 Encounter for screening mammogram for malignant neoplasm of breast (principal); R92.8 Other abnormal and inconclusive findings on diagnostic imaging of breast
CPT/HCPCS: 77063; 77067